=== PATIENT | male | born 1955 | race Caucasian/White ===

== ENCOUNTER 2018-01-27 10:40 | Inpatient (IN) | payer OTHER ==
[2018-01-27] MEDS ORDERED: IV FLUID CONTINUATION 600 ML IV ONE (12:40)
[2018-01-27] MEDS ORDERED: LIDOCAINE 1% INJ 10MG/ML (20 ML MDV) ONE (12:52)
[2018-01-27] MEDS ORDERED: BIVALIRUDIN BOLUS 250 MG/50 ML IV ONE (13:13)
[2018-01-27] MEDS ORDERED: BIVALIRUDIN 250 MG in SODIUM CHLORIDE 0.9% 40 ML IV ONE (13:14)
[2018-01-27] MEDS ORDERED: MIDAZOLAM 2 MG/2 ML VIAL ONE (13:18)
[2018-01-27] MEDS ORDERED: MIDAZOLAM 2 MG/2 ML VIAL IV ONE (13:22)
[2018-01-27] MEDS: NITROGLYCERIN 1000MCG/10ML SYRINGE INTRACORON ONE ×2 (13:26→13:36)
[2018-01-27] MEDS ORDERED: CLOPIDOGREL 75 MG TAB ONE (13:29)
[2018-01-27] MEDS ORDERED: CLOPIDOGREL 75 MG TAB PO ONE (13:33)
[2018-01-27] MEDS ORDERED: IOPAMIDOL-370 100ML BTL INJ ONE (13:42)
[2018-01-27] MEDS ORDERED: SODIUM CHLORIDE 0.9% 1,000 ML IV ONE (13:42)
[2018-01-27] MEDS ORDERED: ZOLPIDEM 5 MG TAB PO PRN (13:43)
[2018-01-27] MEDS ORDERED: NITROGLYCERIN SL TABS 0.4 MG TAB SUBLINGUAL PRN (13:43)
[2018-01-27] MEDS ORDERED: ATROPINE SULFATE 0.1 MG/ML 10ML SYRINGE IV PRN (13:43)
[2018-01-27] MEDS ORDERED: RX INFO: IV CONTRAST WAS GIVEN 1 EACH MISC MISCELLANE PRN (13:43)
[2018-01-27] MEDS ORDERED: MAG HYDROX/AL HYDROX/SIMETH 30 ML CUP PO PRN (13:43)
[2018-01-27] MEDS ORDERED: SODIUM CHLORIDE 0.9% 1,000 ML IV SCH (13:45)
--- NOTE | 2018-01-27 16:09 | PTCA ---
PERCUTANEOUSTRANS CORORONARY ANGIOGRAPHY DATE OF SERVICE: 01/27/2018 PERFORMING PHYSICIAN: Taiwo Huffman MD, cane splicer. PROCEDURE PERFORMED: Successful stenting of the mid RCA using a 2.75 x 15 mm Xience KAL with good angiographic results. INDICATION: This is a pleasant 62-year-old gentleman who presented to [facility] with chest discomfort and ruled in for acute non-STEMI. He underwent heart catheterization by Dr. Max Mcgee and was found to have critical disease involving the mid RCA. Because of that, PCI of the RCA was advised. APPROACH: Right common femoral artery. COMPLICATIONS: None. LEVEL OF SEDATION: Moderate with sedation length of 23 minutes. PROCEDURE DESCRIPTION: After diagnostic heart catheterization was performed by Dr. Max Mcgee and after reviewing the angiogram, we decided to proceed with intervention on the RCA. Anticoagulation was initiated using Angiomax. Subsequently I engaged the RCA using a JR4 guide. I did wire it using a Whisper wire. I did balloon angioplasty initially using a 2.0 x 12 mm balloon, and I tried to advance a 2.75 x 15 mm stent, but the stent would not make the turn from the proximal to mid RCA. At that point, I used a 2.5 mm NC balloon, and after that I was able to advance the stent to the mid RCA, where the stent was positioned under fluoroscopy guidance and deployed under 14 atmospheres for 20 seconds. The following angiogram showed good angiographic results and the procedure was completed without any complication, POST-PROCEDURE MANAGEMENT: 1. Dual anti-platelet therapy. 2. Risk factor modifications. 3. Follow up with the patient. MMODL / IJN: [id number] /
[2018-01-27] MEDS: METOPROLOL TARTRATE 25 MG TAB PO SCH (18:57)
[2018-01-27] MEDS ORDERED: ACETAMINOPHEN TAB 325 MG TAB PO PRN (19:03)
[2018-01-27] MEDS ORDERED: HYDROcodone/APAP 5-325MG 1 EACH TAB PO PRN (19:03)
[2018-01-27] MEDS ORDERED: NALOXONE 0.4 MG/ML 1 ML VIAL IV PRN (19:03)
[2018-01-27] MEDS ORDERED: ONDANSETRON 4 MG/2 ML VIAL IVP PRN (19:03)
[2018-01-27] MEDS ORDERED: ALPRAZolam 0.25 MG TAB PO PRN (19:03)
[2018-01-27] MEDS ORDERED: NICOTINE POLACRILEX 2 MG GUM BUCCAL PRN (19:09)
[2018-01-27] MEDS ORDERED: ALBUTEROL NEBULIZED 2.5 MG/3 ML INHALATION PRN (19:09)
--- NOTE | 2018-01-27 19:28 | P.HPIM ---
History of Present Illness H&P Date: 01/27/18 Chief Complaint: chest pain Patient is a 62-year-old male with a past medical history of hypertension, myocardial infarction 23 years ago, COPD, and ongoing tobacco abuse who initially presented to his primary care physician with complaints of chest pain. Having obtained an EKG and sent immediately over the hospital. He has been at [facility] since yesterday. He went for cardiac catheterization today and was found to have a lesion that needed a stent. He therefore underwent mine laborer to mine laborer transfer. Dr. Huffman deployed the stent to the RCA. He has been admitted to the selective care unit. We are asked to see him as we're covering city call. Patient seen and examined at bedside post cath. He complains of some back pain and feeling as though his leg is stiff. He states that he has been having chest pain 2 times prior to admission. The first time was rather severe and is approximately one week ago. His chest pain went into his arm and his neck. He had some tingling. Admitted had awoken him from sleep. The second time it just felt like soreness. He went to his PCPs office and had an EKG done which was abnormal and then proceeded to the hospital. He has not had any more chest pain since admission. He had initially thought this was coming from infection. he was not taking anything at home for the pain prior to admission. He denies any recent cough, cold, fever, flu. He has not had any recent changes in medication and only takes Symbicort. He does continue to smoke. Review of Systems Pertinent positives and negatives as discussed in HPI, a complete review of systems was performed and all other systems are negative. Past Medical History Additional Past Medical History / Comment(s): COPD, myocardial infarction, hypertension Past Surgical History: No Surgical Hx Reported Smoking Status: Current every day smoker Past Alcohol Use History: Occasional (Drinks 2-3 beers 2-3 times weekly) Past Drug Use History: None Reported Additional History: Lives with his , he is retired - Past Family History Father Additional Family Medical History / Comment(s): Myocardial infarction Brother(s) Family Medical History: Coronary Artery Disease (CAD) Additional Family Medical History / Comment(s): Multiple brothers with coronary artery disease, one having of an [place]. Medications and Allergies Home Medications and Allergies Comment(s): Patient states the only medication he is taking at home and Symbicort. Allergies Allergy/AdvReac Type Severity Reaction Status Date / Time No Known Allergies Allergy Verified 01/27/18 13:14 Physical Exam Osteopathic Statement: *. No significant issues noted on an osteopathic structural exam other than those noted in the History and Physical/Consult. Vitals: Vital Signs Temp Pulse Pulse Resp BP Pulse Ox 01/27/18 18:15 86 18 185/92 96 01/27/18 18:00 96 18 192/104 95 01/27/18 17:45 78 18 170/92 97 01/27/18 17:30 98.3 F 76 18 169/98 92 L 01/27/18 16:45 72 18 154/7 01/27/18 16:30 68 18 156/77 01/27/18 16:00 74 18 160/84 01/27/18 15:20 56 L 18 165/79 96 01/27/18 14:49 72 18 142/71 96 01/27/18 14:35 18 L 18 140/68 97 01/27/18 14:20 70 18 152/72 97 01/27/18 14:05 70 16 154/80 94 L Intake and Output 01/27/18 01/27/18 01/27/18 06:59 14:59 22:59 Intake Total 176.8 Output Total 500 Balance -323.2 Intake: IV 176.8 Output: Urine 500 Other: Weight 83.91 kg General: non toxic, no distress, appears at stated age, normal weight Derm: no unusual rashes/lesions no unusual ecchymoses, warm, dry Head: atraumatic, normocephalic, symmetric Eyes: EOMI, no lid lag, anicteric sclera, pupils equal round reactive to light ENT: Nose and ears atraumatic, no thrush, no pharyngeal erythema Neck: No thyromegaly, no cervical lymphadenopathy, trachea midline, supple Mouth: no lip lesion, mucus membranes moist Cardiovascular: S1S2 reg, no murmur, positive posterior tibial pulse bilateral, no edema, capillary refill less than 2 seconds Lungs: Decreased breath sounds bilateral bases, no rhonchi, no rales , no accessory muscle use Abdominal: soft, nontender to palpation, no guarding, no appreciable organomegaly, normal bowel sounds Ext: no gross muscle atrophy, muscle strength 5 out of 5 b/l upper extemities, no contractures, Neuro: CN II-XI grossly intact, light touch intact all 4 extremities, finger to nose within normal limits, Psych: Alert, oriented, appropriate affect Results Comments: Records reviewed from admission to [facility]. Today's blood work showed a sodium of 136, potassium 4.2, chloride 104, carbon dioxide 26.6, BUN 9, creatinine 0.83, glucose 98. White blood cell count 6.5, hemoglobin 14.5 , platelets 36. AST 90, ALC 113, alkaline phosphatase 62. Echo showed ejection fraction 50-55% multiple no kidney cyst in the basal and basal inferior segment. CT of the chest showed no acute pulmonary emboli Thrombosis Risk Factor Assmnt - DVT/VTE Prophylaxis DVT/VTE Prophylaxis: Pharmacologic Prophylaxis ordered Assessment and Plan Assessment: Non-ST segment elevated myocardial infarction -Status post started to RCA -Aspirin, Plavix, Lipitor, metoprolol -Cardiology recommendations HTN Urgency - give metoprolol dose now - follow BP COPD without exacerbation - resume home symbicort - prn albuterol Tobacco abause - cessation - nicotine replacement Transaminits - Undetermined cause - repeat in AM - if no improvement consider liver US At the end of our conversation it came to light that his PCP is Dr. Yao we will transfer [facility] the morning. The patient is admitted with an anticipated greater than 2 midnight stay for evaluation of NSTEMI s/p stenting. Surrogate decision-maker: CODE STATUS: DNR DVT prophylaxis: Heparin Discussed with: Patient, , nursing Anticipated discharge date: 01/[address]: home A total of 65 minutes was spent on the care of this complex patient more than 50 % of the time was spent in counseling and care coordination.
[2018-01-27] MEDS: SYMBICORT 160-4.5 MCG INHALER INHALATION SCH (20:42)
[2018-01-27] MEDS ORDERED: ATORVASTATIN 80 MG TAB PO SCH (21:00)
[2018-01-27] MEDS: HEPARIN SODIUM,PORCINE 5,000 UNIT/ML 1 ML VIAL SQ SCH (23:19)
[2018-01-28 06:34] LABS: Basophils % (A) 0 %; Eosinophils # (A) 0.1 k/uL (0-0.7); Eosinophils % (A) 2 %; HCT 43.8 % (39.0-53.0); HGB 14.9 gm/dL (13.0-17.5); Lymphocytes # (A) 1.2 k/uL (1.0-4.8); Lymphocytes % (A) 24 %; MCH 31.7 pg (25.0-35.0); MCHC 34.1 g/dL (31.0-37.0); MCV 92.9 fL (80.0-100.0); Mean Platelet Volume 6.8; Monocytes # (A) 0.7 k/uL (0-1.0); Monocytes % (A) 13 %; Neutrophils # (A) 2.8 k/uL (1.3-7.7); Neutrophils % (A) 57 %; Platelet Count 144 k/uL (150-450); RBC 4.71 m/uL (4.30-5.90); RDW 13.5 % (11.5-15.5)
[2018-01-28 07:12] LABS: Anion Gap 8 mmol/L; Blood Urea Nitrogen 9 mg/dL (9-20); Calcium 8.5 mg/dL (8.4-10.2); Carbon Dioxide 26 mmol/L (22-30); Chloride 105 mmol/L (98-107); Cholesterol 141 mg/dL (<200); Glucose 92 mg/dL (74-99); HDL Cholesterol 44 mg/dL (40-60); LDL Cholesterol,Calculated 85 mg/dL (0-99); Potassium 4.4 mmol/L (3.5-5.1); Sodium 139 mmol/L (137-145); Triglycerides 58 mg/dL (<150)
[2018-01-28] MEDS: SYMBICORT 160-4.5 MCG INHALER INHALATION SCH (07:42)
[2018-01-28] MEDS: HEPARIN SODIUM,PORCINE 5,000 UNIT/ML 1 ML VIAL SQ SCH (07:55)
[2018-01-28] MEDS: METOPROLOL TARTRATE 25 MG TAB PO SCH (07:56)
[2018-01-28 08:08] VITALS: BP 157/77; PULSE 70; RESP 16; TEMP 98.4
--- NOTE | 2018-01-28 08:54 | P.DS ---
Providers Date of admission: 01/27/18 12:52 Expected date of discharge: 01/28/18 Attending physician: Amanda Wilson Consults: 01/27/18 13:43 Consult Physician Routine Consulting Provider: [facility] Consult Reason/Comments: Post Interventional patient Do you want consulting provider notified?: Already Contacted Placement Type Exists?: Yes Hospital Course: Discharge diagnosis: NSTEMI with stent to the RCA HTN urgency COPD without exacerbation Tobacco abuse Transamimitis, improving History of present illness Patient is a 62-year-old male with a past medical history of hypertension, myocardial infarction 23 years ago, COPD, and ongoing tobacco abuse who initially presented to his primary care physician with complaints of chest pain. Having obtained an EKG and sent immediately over the hospital. He has been at [facility] since yesterday. He went for cardiac catheterization today and was found to have a lesion that needed a stent. He therefore underwent quality assurance qa lab analyst to quality assurance qa lab analyst transfer. Dr. Huffman deployed the stent to the RCA. He was admitted to the selective care unit. He tolerated the procedure well with no immediate complications. He was started on ASA, plavix, lipitor, lisinopril and metoprolol. The morning after the procedure the patinet as asking to go home. He was seen by cardiology and was cleared for discharge. He will continue on aspirin, Plavix, metoprolol, and Lipitor. He was given a prescription for 30 days and supplied with [employer] funds to cover the cost. He was told that he needs to take all of these medications on a daily basis. He was warned that should he was aspirin or Plavix he has a risk of in-stent restenosis. He was told the importance of following up with his primary care physician to have a check on his blood pressure later this week. He was also told the importance of following up due to his transaminitis. He will also follow-up Dr. Huffman in 1-2 weeks. We discussed the importance of stopping smoking and drinking. Patient improved faster than anticipated and was subsequently discharged home. Patient seen and examined at bedside. Feeling well. No chest pain, shortness breath, nausea, or vomiting. Patient insisted on being discharged. Vital signs reviewed and stable. General: non toxic, no distress, appears at stated age Derm: warm, dry Head: atraumatic, normocephalic, symmetric Eyes: EOMI, no lid lag, anicteric sclera Mouth: no lip lesion, mucus membranes moist Cardiovascular: S1S2 reg, no murmur, positive posterior tibial pulse bilateral, Lungs: CTA bilateral, no rhonchi, no rales , no accessory muscle use Abdominal: soft, nontender to palpation, no guarding, no appreciable organomegaly Ext: no gross muscle atrophy, no edema, no contractures Neuro: CN II-XI grossly intact, no focal neuro deficits Psych: Alert, oriented, anxious A total of 25 minutes of time were spent preparing this complex discharge summary . Pertinent Studies: None Procedures: 01/27- Heart cath with PCI to the RCA Patient Condition at Discharge: Stable Plan - Discharge Summary Discharge Rx Participant: No New Discharge Prescriptions: New Aspirin [Adult Low Dose Aspirin EC] 81 mg PO DAILY #30 tablet. Atorvastatin [Lipitor] 80 mg PO HS #30 tab Clopidogrel [Plavix] 75 mg PO DAILY #30 tab Metoprolol Tartrate [Lopressor] 25 mg PO BID #60 tab Discharge Medication List Aspirin [Adult Low Dose Aspirin EC] 81 mg PO DAILY #30 tablet. 01/28/18 [Rx] Atorvastatin [Lipitor] 80 mg PO HS #30 tab 01/28/18 [Rx] Clopidogrel [Plavix] 75 mg PO DAILY #30 tab 01/28/18 [Rx] Metoprolol Tartrate [Lopressor] 25 mg PO BID #60 tab 01/28/18 [Rx] Follow up Appointment(s)/Referral(s): Rene Yao MD [REFERRING] - 3 Days (call for appt) Taiwo Huffman MD [STAFF PHYSICIAN] - 1 Week (call for appt) Patient Instructions/Handouts: *Surgery [facility] - After Heart Catheterization - Insurance Actuary Instructions Activity/Diet/Wound Care/Special Instructions: heart healthy diet Activity as tolerated Stop smoking Discharge Disposition: HOME SELF-CARE
[2018-01-28] MEDS ORDERED: ASPIRIN 325 MG TAB PO SCH (09:00)
--- NOTE | 2018-01-28 09:11 | P.PN ---
Subjective Progress Note Date: 01/28/18 Principal diagnosis: Acute coronary event This is a pleasant 62-year-old gentleman with hypertension and dyslipidemia who presented to [facility] with a chest discomfort and was diagnosed with acute non-ST elevation myocardial infarction where he underwent a heart catheterization by Dr. Mcgee and I did perform an angioplasty and stenting of the RCA which was critically diseased. I'll follow-up with him today, he seems to be asymptomatic. He wants to go home. I did Dr. the patient in details about the importance of taking his dual antiplatelet therapy Objective - Vital Signs Vital signs: Vital Signs Temp 98.4 F 01/28/18 08:00 Pulse 70 01/28/18 08:00 Resp 16 01/28/18 08:00 BP 157/77 01/28/18 08:00 Pulse Ox 93 L 01/28/18 08:00 Intake & Output 01/27/18 01/28/18 01/28/18 18:59 06:59 18:59 Intake Total 176.8 1500 100 Output Total 500 700 Balance -323.2 800 100 Weight 83.91 kg 84.6 kg Intake: IV 176.8 Intake, IV Titration 1100 Amount Sodium Chloride 0.9% 1, 1100 000 ml @ 100 mls/hr IV . Q10H PAM Rx#:[id number] Oral 400 100 Output: Urine 500 700 Other: Voiding Method Urinal # Voids 1 1 - Constitutional General appearance: Present: no acute distress - Respiratory Respiratory: bilateral: CTA - Cardiovascular Rhythm: regular Heart sounds: normal: S1, S2 - Labs CBC & Chem 7: 01/28/18 06:13 01/28/18 06:13 Labs: Abnormal Lab Results - Last 24 Hours (Table) 01/28/18 Range/Units 06:13 Plt Count 144 L (150-450) k/uL Assessment and Plan Assessment: Assessment #1 acute coronary event #2 status post PCI of the RCA Plan #1 from the cardiac vascular standpoint overview, the patient can be discharged home.
[2018-01-28 10:50] VITALS: BMI 27.5
[2018-01-28] MEDS ORDERED: CLOPIDOGREL 75 MG TAB PO SCH (12:00)
== END 2018-01-28 11:19 | disposition home or self-care (01) | DRG 247 ==
LOC: UNDOADMIN 12:49 → 6PED 12:49 → 6SEL 12:52
PROVIDERS: ADMIT Hospitalist; ATTEND Hospitalist
PROC: 027034Z Dilation of Coronary Artery, One Artery with Drug-eluting Intraluminal Device, Percutaneous Approach (ICD-10-PCS; principal; 2018-01-27 12:30)
DX: I21.4 Non-ST elevation (NSTEMI) myocardial infarction (principal); I16.0 Hypertensive urgency; I25.2 Old myocardial infarction; J44.9 Chronic obstructive pulmonary disease, unspecified; R74.0 Nonspecific elevation of levels of transaminase and lactic acid dehydrogenase [LDH]; Z66 Do not resuscitate; I10 Essential (primary) hypertension; E78.5 Hyperlipidemia, unspecified; F17.210 Nicotine dependence, cigarettes, uncomplicated; Z82.49 Family history of ischemic heart disease and other diseases of the circulatory system; Z79.51 Long term (current) use of inhaled steroids; Z71.6 Tobacco abuse counseling; Z98.890 Other specified postprocedural states
CPT/HCPCS: 80048; 80061; 85025; 94760

== ENCOUNTER → 2018-05-19 | Outpatient (CLI) | payer MEDICARE, OTHER ==
[2018-05-19 12:53] LABS: HCT 47.3 % (39.0-53.0); HGB 16.3 gm/dL (13.0-17.5); MCH 32.3 pg (25.0-35.0); MCHC 34.4 g/dL (31.0-37.0); MCV 93.6 fL (80.0-100.0); Mean Platelet Volume 6.7; Platelet Count 178 k/uL (150-450); RBC 5.05 m/uL (4.30-5.90); RDW 13.4 % (11.5-15.5); WBC 8.2 k/uL (3.8-10.6)
[2018-05-19 13:17] LABS: ALT 151 U/L (21-72); AST 123 U/L (17-59); Alkaline Phosphatase 169 U/L (38-126); Anion Gap 9 mmol/L; Blood Urea Nitrogen 15 mg/dL (9-20); Calcium 9.7 mg/dL (8.4-10.2); Carbon Dioxide 30 mmol/L (22-30); Chloride 100 mmol/L (98-107); Glucose 165 mg/dL (74-99); Potassium 4.5 mmol/L (3.5-5.1); Sodium 139 mmol/L (137-145); Total Bilirubin 0.8 mg/dL (0.2-1.3); Total Protein 7.2 g/dL (6.3-8.2)
[2018-05-19 13:32] LABS: T4, Free (Free Thyroxine) 0.94 ng/dL (0.78-2.19)
== END ==
LOC: LABWHC1 11:30
PROVIDERS: ATTEND Internal Medicine Cardiovascular Disease
DX: E78.2 Mixed hyperlipidemia (principal); I25.2 Old myocardial infarction; Z95.9 Presence of cardiac and vascular implant and graft, unspecified
CPT/HCPCS: 36415; 80053; 84439; 84443; 85027

== ENCOUNTER → 2018-06-16 | Outpatient (CLI) | payer MEDICARE, OTHER ==
[2018-06-16 17:10] LABS: Anion Gap 9.4 mmol/L (4.00-12.00); Carbon Dioxide 26.6 mmol/L (21.6-31.8); Potassium 4.4 mmol/L (3.5-5.5)
== END | disposition home or self-care (01) ==
LOC: LABWHC1 09:55
PROVIDERS: ATTEND Internal Medicine Interventional Cardiology
DX: I10 Essential (primary) hypertension (principal)
CPT/HCPCS: 36415; 80051; 82565; 84520

== ENCOUNTER → 2018-12-06 | Outpatient (CLI) | payer MEDICARE, OTHER | END | disposition home or self-care (01) | LOC: LABWHC1 09:13 | PROVIDERS: ATTEND Internal Medicine Cardiovascular Disease | DX: E78.2 Mixed hyperlipidemia (principal) | CPT/HCPCS: 36415; 80061; 82550; 84450; 84460 ==

== ENCOUNTER → 2018-12-29 | Outpatient (CLI) | payer MEDICARE, OTHER ==
--- NOTE | 2018-12-29 09:18 | XR ---
EXAMINATION TYPE: XR chest 2V DATE OF EXAM: 12/29/2018 COMPARISON: Chest x-ray from 2017. HISTORY: Right-sided chest pain after fall injury. TECHNIQUE: Frontal and lateral views of the chest are obtained. FINDINGS: There is chronic parenchymal change without suspicious air space opacity, pleural effusion , or pneumothorax seen. The cardiac silhouette size remains within normal limits with atheroscleroti c change in the aortic knob. The osseous structures are intact. IMPRESSION: Chronic parenchymal changes without acute pulmonary process.
[2018-12-29 17:39] LABS: ALT 122 U/L (10-49); AST 119 U/L (14-35)
== END | disposition home or self-care (01) ==
LOC: LABWHC1 08:41
PROVIDERS: ATTEND Physician Assistant
DX: R91.8 Other nonspecific abnormal finding of lung field (principal); R07.89 Other chest pain; R74.0 Nonspecific elevation of levels of transaminase and lactic acid dehydrogenase [LDH]
CPT/HCPCS: 36415; 71046; 84450; 84460

== ENCOUNTER 2019-06-24 15:45 | Emergency (ER) | payer MEDICARE, OTHER ==
[2019-06-24 15:55] VITALS: BP 190/93; PULSE 104; RESP 18; TEMP 98.7
[2019-06-24] MEDS ORDERED: DIPH,PERTUS(ACELL)TETVAC-LF 0.5 ML VIAL IM ONE (16:18)
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
[2019-06-24] MEDS ORDERED: oxyCODONE-APAP 5-325MG 1 EACH TAB PO STA (16:36)
--- NOTE | 2019-06-24 16:38 | ED ---
Disposition Clinical Impression: Burn Disposition: HOME SELF-CARE Condition: Good Instructions (If sedation given, give patient instructions): Second Degree Burn (ED) Prescriptions: HYDROcodone/APAP 5-325MG [[place] 5-325] 1 tab PO Q6HR PRN 3 Days #12 tab PRN Reason: Severe Pain Is patient prescribed a controlled substance at d/c from ED?: Yes Referrals: Gio Saeed MD [STAFF PHYSICIAN] - 1-2 days Time of Disposition: 16:38
== END 2019-06-24 16:35 | disposition home or self-care (01) ==
LOC: EC 15:45
DX: T22.212A Burn of second degree of left forearm, initial encounter (principal); T23.272A Burn of second degree of left wrist, initial encounter; T31.0 Burns involving less than 10% of body surface; Z87.891 Personal history of nicotine dependence; Z23 Encounter for immunization; X10.2XXA Contact with fats and cooking oils, initial encounter
CPT/HCPCS: 16000; 90471; 90715; 99283

== ENCOUNTER → 2019-10-10 | Outpatient (CLI) | payer MEDICARE, OTHER | END | disposition home or self-care (01) | DX: K76.89 Other specified diseases of liver (principal) | CPT/HCPCS: 76705 ==

== ENCOUNTER 2022-01-04 14:56 | Emergency (ER) | payer OTHER ==
[2022-01-04 15:02] VITALS: BP 193/88; PULSE 84; RESP 18; TEMP 98
--- NOTE | 2022-01-04 16:42 | ED ---
General Adult HPI - General Chief complaint: Chest Pain Stated complaint: Chest Pain/Abd Pain Time Seen by Provider: 01/04/22 16:01 Source: patient Mode of arrival: ambulatory Limitations: no limitations - History of Present Illness Initial comments: Dictation was produced using [employer] dictation software. please excuse any grammatical, word or spelling errors. Chief Complaint: 66-year-old male past medical history of coronary artery disease, coronary artery stent presents emergency Department chest tightness and abdominal pain History of Present Illness: 66-year-old male. He states that his symptoms of abdominal pain began the night before [place] last year. Patient typically does not consume liquor however that night he did because of a special occasion. He had some liquor with his friend. Since then he's been having intermittent episodes of abdominal crampiness. Patient states that he was evaluated by service department manager a couple months ago where he had a lower endoscopy that showed no acute processes. Patient recently was discharged from his PCPs office due to insurance issues. Patient states that he's been having on and off abdominal cramping for the last several months. Patient has any associated fevers. Patient also has secondary complaint of chest pain. Denies that it feels like pain feels more like a discomfort. States his pressure and substernal. Nonradiating, states it is not associated diaphoresis or nausea. Patient does have history of coronary artery disease. He has had a stent plac ed. The ROS documented in this emergency department record has been reviewed and confirmed by me. Those systems with pertinent positive or negative responses have been documented in the HPI. All other systems are other negative and/or noncontributory. PHYSICAL EXAM: General Impression: Alert and oriented x3, not in acute distress HEENT: Normocephalic atraumatic, extra-ocular movements intact, pupils equal and reactive to light bilaterally, mucous membranes moist. Cardiovascular: Heart regular rate and rhythm Chest: Able to complete full sentences, no retractions, no tachypnea Abdomen: abdomen soft, non-tender, non-distended, no organomegaly Musculoskeletal: Pulses present and equal in all extremities, no peripheral edema Motor: no focal deficits noted Neurological: CN II-XII grossly intact, no focal motor or sensory deficits noted Skin: Intact with no visualized rashes Psych: Normal affect and mood ED course: 66-year-old well-appearing male presents to the emergency department for chronic abdominal pain and recent onset of chest discomfort.patient's pain is atypical. Vital signs upon arrival are within acceptable limits. Laboratory evaluation obtained. CBC, coag panel, metabolic panel is unremarkable. Liver enzymes slightly elevated. 4 panel viral PCR is negative. Chest x-ray shows no acute processes. Computed tomography scan of the abdomen and pelvis shows multiple variably enhancing liver lesion suggestive of extensive metastatic disease. Primary tumor is not identified. Follow-up is recommended. Patient observed in emergency department for approximately 4 hours and 30 minutes. Disposition options were discussed. it is recommended to the patient to be admitted to the hospital for oncology consultation and cardiac monitoring. Patient refused and preferred to be discharge to follow-up on outpatient basis. All questions answered. Patient told that he needs to follow-up with a primary care doctor and follow-up with oncology as soon as possible. Return precautions discussed. EKG interpretation: Ventricular rate 82, sinus rhythm, CT interval 155, QS 89, QTC 400. No CT prolongation, no QTC prolongation, no ST or T-wave changes noted. EKG compared to January 28 2018 showing no changes. Overall, this EKG is unremarkable - Related Data Home Medications Medication Instructions Recorded Confirmed Albuterol Sulfate [Ventolin HFA] 2 puff INHALATION RT-QID PRN 01/04/22 01/04/22 Budesonide/Formoterol Fumarate 2 puff INHALATION RT-BID 01/04/22 01/04/22 [Symbicort 160-4.5 Mcg Inhaler] Cyanocobalamin (Vitamin B-12) 1,000 mcg PO DAILY 01/04/22 01/04/22 [Vitamin B-12] Ipratropium-Albuterol Nebulize 3 ml INHALATION RT-QID 01/04/22 01/04/22 [Duoneb 0.5 mg-3 mg/3 ml Soln] Losartan Potassium 50 mg PO DAILY 01/04/22 01/04/22 carvediloL [Coreg] 6.25 mg PO BID 01/04/22 01/04/22 Previous Rx's Medication Instructions Recorded Aspirin [Adult Low Dose Aspirin EC] 81 mg PO DAILY #30 tablet. 01/28/18 Allergies Allergy/AdvReac Type Severity Reaction Status Date / Time No Known Allergies Allergy Verified 01/04/22 17:47 Review of Systems ROS Statement: Those systems with pertinent positive or pertinent negative responses have been documented in the HPI. ROS Other: All systems not noted in ROS Statement are negative. Past Medical History Past Medical History: Chest Pain / Angina, COPD, Hyperlipidemia, Hypertension, Myocardial Infarction (IA) Additional Past Medical History / Comment(s): COPD, myocardial infarction, hypertension Last Myocardial Infarction Date:: 1994 History of Any Multi-Drug Resistant Organisms: None Reported Past Surgical History: Heart Catheterization With Stent Past Anesthesia/Blood Transfusion Reactions: No Reported Reaction Past Psychological History: No Psychological Hx Reported Past Alcohol Use History: Daily Past Drug Use History: None Reported - Past Family History Father Additional Family Medical History / Comment(s): Myocardial infarction Brother(s) Family Medical History: Coronary Artery Disease (CAD) Additional Family Medical History / Comment(s): Multiple brothers with coronary artery disease, one having of an IA. General Exam Limitations: no limitations Course Vital Signs 01/04/22 14:57 Temperature 98.0 F Pulse Rate 84 Respiratory 18 Rate Blood Pressure 193/88 O2 Sat by Pulse 92 L Oximetry Medical Decision Making - Lab Data Result diagrams: 01/04/22 16:44 01/04/22 16:44 Lab Results 01/04/22 01/04/22 01/04/22 Range/Units 16:44 16:44 16:44 WBC 9.2 (3.8-10.6) k/uL RBC 5.23 (4.30-5.90) m/uL Hgb 16.1 (13.0-17.5) gm/dL Hct 50.4 (39.0-53.0) % MCV 96.3 (80.0-100.0) fL MCH 30.8 (25.0-35.0) pg MCHC 32.0 (31.0-37.0) g/dL RDW 13.2 (11.5-15.5) % Plt Count 181 (150-450) k/uL MPV 8.0 Neutrophils % 67 % Lymphocytes % 16 % Monocytes % 11 % Eosinophils % 1 % Basophils % 1 % Neutrophils # 6.1 (1.3-7.7) k/uL Lymphocytes # 1.5 (1.0-4.8) k/uL Monocytes # 1.0 (0-1.0) k/uL Eosinophils # 0.1 (0-0.7) k/uL Basophils # 0.1 (0-0.2) k/uL PT 10.8 (9.0-12.0) sec INR 1.0 (<1.2) APTT 22.1 (22.0-30.0) sec Sodium 137 (137-145) mmol/L Potassium 4.7 (3.5-5.1) mmol/L Chloride 102 (98-107) mmol/L Carbon Dioxide 26 (22-30) mmol/L Anion Gap 9 mmol/L BUN 17 (9-20) mg/dL Creatinine 0.85 (0.66-1.25) mg/dL Est GFR (CKD-EPI)AfAm >90 (>60 ml/min/1.73 sqM) Est GFR (CKD-EPI)NonAf 90 (>60 ml/min/1.73 sqM) Glucose 106 H (74-99) mg/dL Calcium 9.9 (8.4-10.2) mg/dL Magnesium 2.1 (1.6-2.3) mg/dL Total Bilirubin 0.8 (0.2-1.3) mg/dL AST 210 H (17-59) U/L ALT 138 H (4-49) U/L Alkaline Phosphatase 129 H (38-126) U/L Troponin I (0.000-0.034) ng/mL Total Protein 7.7 (6.3-8.2) g/dL Albumin 4.2 (3.5-5.0) g/dL Lipase 71 (23-300) U/L Influenza Type A (PCR) (Not Detectd) Influenza Type B (PCR) (Not Detectd) RSV (PCR) (Not Detectd) SARS-CoV-2 (PCR) (Not Detectd) 01/04/22 01/04/22 Range/Units 16:44 16:47 WBC (3.8-10.6) k/uL RBC (4.30-5.90) m/uL Hgb (13.0-17.5) gm/dL Hct (39.0-53.0) % MCV (80.0-100.0) fL MCH (25.0-35.0) pg MCHC (31.0-37.0) g/dL RDW (11.5-15.5) % Plt Count (150-450) k/uL MPV Neutrophils % % Lymphocytes % % Monocytes % % Eosinophils % % Basophils % % Neutrophils # (1.3-7.7) k/uL Lymphocytes # (1.0-4.8) k/uL Monocytes # (0-1.0) k/uL Eosinophils # (0-0.7) k/uL Basophils # (0-0.2) k/uL PT (9.0-12.0) sec INR (<1.2) APTT (22.0-30.0) sec Sodium (137-145) mmol/L Potassium (3.5-5.1) mmol/L Chloride (98-107) mmol/L Carbon Dioxide (22-30) mmol/L Anion Gap mmol/L BUN (9-20) mg/dL Creatinine (0.66-1.25) mg/dL Est GFR (CKD-EPI)AfAm (>60 ml/min/1.73 sqM) Est GFR (CKD-EPI)NonAf (>60 ml/min/1.73 sqM) Glucose (74-99) mg/dL Calcium (8.4-10.2) mg/dL Magnesium (1.6-2.3) mg/dL Total Bilirubin (0.2-1.3) mg/dL AST (17-59) U/L ALT (4-49) U/L Alkaline Phosphatase (38-126) U/L Troponin I <0.012 (0.000-0.034) ng/mL Total Protein (6.3-8.2) g/dL Albumin (3.5-5.0) g/dL Lipase (23-300) U/L Influenza Type A (PCR) Not Detected (Not Detectd) Influenza Type B (PCR) Not Detected (Not Detectd) RSV (PCR) Not Detected (Not Detectd) SARS-CoV-2 (PCR) Not Detected (Not Detectd) Disposition Clinical Impression: Liver metastasis Disposition: HOME SELF-CARE Condition: Fair Instructions (If sedation given, give patient instructions): Liver Cancer (DC) Additional Instructions: Return to the emergency department or seek immediate medical attention with any worsening chest symptoms. It is important that you follow up with oncology as soon as possible for outpatient management of abnormal CT. Your computed tomography scan is very suspicious for liver cancer Is patient prescribed a controlled substance at d/c from ED?: No Referrals: None,Stated [Primary Care Provider] - 1-2 days Santana Rowley MD [STAFF PHYSICIAN] - 1-2 days Time of Disposition: 19:38
[2022-01-04 16:59] LABS: Basophils # (A) 0.1 k/uL (0-0.2); Basophils % (A) 1 %; Eosinophils # (A) 0.1 k/uL (0-0.7); Eosinophils % (A) 1 %; HCT 50.4 % (39.0-53.0); HGB 16.1 gm/dL (13.0-17.5); Lymphocytes # (A) 1.5 k/uL (1.0-4.8); Lymphocytes % (A) 16 %; MCH 30.8 pg (25.0-35.0); MCV 96.3 fL (80.0-100.0); Monocytes % (A) 11 %; Neutrophils # (A) 6.1 k/uL (1.3-7.7); Neutrophils % (A) 67 %; Platelet Count 181 k/uL (150-450); RBC 5.23 m/uL (4.30-5.90); RDW 13.2 % (11.5-15.5); WBC 9.2 k/uL (3.8-10.6)
[2022-01-04 17:09] LABS: Partial Thromboplastin Time 22.1 sec (22.0-30.0); Prothrombin Time 10.8 sec (9.0-12.0)
--- NOTE | 2022-01-04 17:15 | XR ---
EXAMINATION TYPE: XR chest 2V DATE OF EXAM: 01/04/2022 COMPARISON: 12/26/2019 HISTORY: Chest pain TECHNIQUE: 2 view FINDINGS: Heart is normal. Lungs are clear of infiltrate. No heart failure. There are no hilar masses . Bony thorax is intact. IMPRESSION: No active cardiopulmonary disease. Normal heart. No change.
[2022-01-04 17:22] LABS: ALT 138 U/L (4-49); AST 210 U/L (17-59); African American GFR (CKD) >90 (>60 ml/min/1.73 sqM); Albumin 4.2 g/dL (3.5-5.0); Alkaline Phosphatase 129 U/L (38-126); Anion Gap 9 mmol/L; Blood Urea Nitrogen 17 mg/dL (9-20); Calcium 9.9 mg/dL (8.4-10.2); Carbon Dioxide 26 mmol/L (22-30); Chloride 102 mmol/L (98-107); Glucose 106 mg/dL (74-99); Lipase 71 U/L (23-300); Magnesium 2.1 mg/dL (1.6-2.3); Non-African American GFR(CKD) 90 (>60 ml/min/1.73 sqM); Potassium 4.7 mmol/L (3.5-5.1); Sodium 137 mmol/L (137-145); Total Bilirubin 0.8 mg/dL (0.2-1.3); Total Protein 7.7 g/dL (6.3-8.2)
--- NOTE | 2022-01-04 18:08 | CT ---
EXAMINATION TYPE: CT abdomen pelvis w con DATE OF EXAM: 01/04/2022 COMPARISON: None HISTORY: Chronic abdominal pain, no PCP, weight loss. CT DLP: 947.1 mGycm Automated exposure control for dose reduction was used. CONTRAST: Performed with IV Contrast, patient injected with 100 mL of Isovue 300. Images obtained from the diaphragm to the floor the pelvis with IV contrast. Lung bases are clear. No pleural effusion. Heart size is normal. No pericardial effusion. There is heterogeneity in the liver. There appears to be multiple enhancing foci in the liver that me asure up to 4.5 cm. The spleen is intact. The stomach is intact. There is no pancreatic mass. Gallbla dder appears normal. The bile ducts are not dilated. There is no adrenal mass. Kidneys show satisfactory contrast opacification. There is no hydronephrosi s. There is a 1.5 cm abdominal periaortic lymph node. Abdominal aorta is atheromatous. Urinary bladde r is almost empty. No free fluid in the pelvis. No pelvic mass. The appendix extends superiorly adjacent to the liver and appears normal. There is no mesenteric edema. No ascites or free air. No sign of a bowel obstruction. The lumbar vertebrae appear intact. No compression fracture. Posterior elements are intact. Facet vick nts are intact. IMPRESSION: Multiple variably enhancing liver lesions suggestive of extensive metastatic disease. Primary tumor n ot identified. Follow-up is recommended. Atherosclerotic vascular disease. Single abdominal retroperi toneal lymph node.
== END 2022-01-04 22:57 | disposition home or self-care (01) ==
LOC: EC 14:56
DX: C78.7 Secondary malignant neoplasm of liver and intrahepatic bile duct (principal); C80.1 Malignant (primary) neoplasm, unspecified; Z20.822 Contact with and (suspected) exposure to COVID-19; I10 Essential (primary) hypertension; I25.2 Old myocardial infarction; I25.10 Atherosclerotic heart disease of native coronary artery without angina pectoris; J44.9 Chronic obstructive pulmonary disease, unspecified; E78.5 Hyperlipidemia, unspecified; Z79.51 Long term (current) use of inhaled steroids; Z79.82 Long term (current) use of aspirin; Z79.899 Other long term (current) drug therapy; Z95.5 Presence of coronary angioplasty implant and graft
CPT/HCPCS: 36415; 93005; 80053; 83690; 83735; 84484; 85025; 85610; 85730; 87636; 71046; 74177; 99285; Q9967

== ENCOUNTER → 2022-01-12 | Outpatient (CLI) | payer MEDICARE ==
--- NOTE | 2022-01-12 18:05 | CT ---
EXAMINATION TYPE: CT chest w con CT DLP: 401.9 mGycm, Automated exposure control for dose reduction was used. DATE OF EXAM: 01/12/2022 5:42 PM COMPARISON: CT abdomen pelvis 01/04/2022. CLINICAL INDICATION:Male, 66 years old with history of M24.9 Joint derangement, unspecified; obs for mets. Recent metastatic ca diagnosis TECHNIQUE: Multiple axial images were obtained through the chest following the administration of 100 cc of Isovue 300. FINDINGS: LUNGS/ PLEURA: No evidence of pulmonary mass. No focal consolidation, pneumothorax or pleural effusio n. AIRWAY: Patent and unremarkable.. HEART: Size within normal limits. MEDIASTINUM: No gross evidence of adenopathy. VASCULATURE: No aortic aneurysm. No evidence for pulmonary embolus. There is atherosclerosis of the arterial vasculature. There is atherosclerosis of the coronary arteries MUSCULOSKELETAL: No acute osseous abnormalities. T12-L1 disc osteophyte complex with at least moderat e spinal canal stenosis. SOFT TISSUES/LYMPH NODES: Unremarkable. LOWER NECK: No significant findings. UPPER ABDOMEN: Multiple hyperenhancing lesions are seen throughout the liver. The liver demonstrates a nodular contour. There is diffuse low-attenuation to the liver background parenchyma. The largest i n the right hepatic lobe measuring 5.7 x 5.3 cm. Gastrohepatic ligament lymph node measuring up to 14 mm in short axis. There is recanalization of the paraumbilical vein. IMPRESSION: 1. No evidence of pulmonary embolus or pulmonary mass. 2. Hyperenhancing lesions throughout the liver similar prior. There is a nodular contour to liver sug gestive of cirrhosis. There is diffuse low-attenuation of the parenchyma of the liver suspicious for superimposed steatosis. Stable gastrohepatic of the ligament lymph node which is enlarged. 3. T12-L1 disc osteophyte complex with at least moderate spinal canal stenosis.
== END | disposition home or self-care (01) ==
LOC: RADCTMAIN 15:58
PROVIDERS: ATTEND Internal Medicine Hematology & Oncology
DX: M48.061 Spinal stenosis, lumbar region without neurogenic claudication (principal); M25.78 Osteophyte, vertebrae; R59.9 Enlarged lymph nodes, unspecified
CPT/HCPCS: 82565; 84520; 71260; 36415; Q9967

== ENCOUNTER 2022-02-16 11:24 | Day surgery (SDC) | payer MEDICARE ==
[2022-02-12 11:49] VITALS: BMI 27.2
[~2022-02-16 11:24] MED LIST: LACTATED RINGERS 1,000 ML IV SCH
[2022-02-16 12:14] VITALS: TEMP 97
[2022-02-16] MEDS ORDERED: LACTATED RINGERS 1,000 ML IV ONE (12:24)
[2022-02-16] MEDS ORDERED: PROPOFOL 10 MG/ML 20 ML VIAL IV ONE (12:44)
[2022-02-16] MEDS ORDERED: LIDOCAINE 2% INJ 20 MG/ML (2 ML VIAL) ONE (12:44)
--- NOTE | 2022-02-16 12:48 | P.GSHP ---
History of Present Illness H&P Date: 02/16/22 Chief Complaint: Epigastric pain 58-year-old male here today for EGD. Patient recently diagnosed with hepatocellular carcinoma. He has history of previous hepatitis C and cirrhosis. No rectal bleeding or melena. Some early satiety. No dysphagia. Oncology is interested in whether the patient has varices or not. Past Medical History Past Medical History: Chest Pain / Angina, COPD, Hyperlipidemia, Hypertension, Liver Disease, Myocardial Infarction (ID) Additional Past Medical History / Comment(s): "Bloating, lost 30 lbs since [place], nauseated, no appetite". Hx ID [id number], 1994 and 2017. Hx "Hepatatis C, said nothing to worry about." Last Myocardial Infarction Date:: 1994, 2017 History of Any Multi-Drug Resistant Organisms: None Reported Past Surgical History: Heart Catheterization With Stent Additional Past Surgical History / Comment(s): 1 cardiac stent. Past Anesthesia/Blood Transfusion Reactions: No Reported Reaction Date of Last Stent Placement:: 2017 Past Psychological History: No Psychological Hx Reported Smoking Status: Current every day smoker Past Alcohol Use History: Daily Additional Past Alcohol Use History / Comment(s): 3 cigarettes per day "all my life". Past Drug Use History: None Reported - Past Family History Father Family Medical History: Myocardial Infarction (ID) Additional Family Medical History / Comment(s): Myocardial infarction Brother(s) Family Medical History: Coronary Artery Disease (CAD) Additional Family Medical History / Comment(s): Multiple brothers with coronary artery disease, one having of an ID. Mother Family Medical History: Cancer Medications and Allergies Home Medications Medication Instructions Recorded Confirmed Type Albuterol Sulfate [Ventolin HFA] 2 puff INHALATION QID 01/04/22 02/16/22 History Budesonide/Formoterol Fumarate 2 puff INHALATION BID 01/04/22 02/16/22 History [Symbicort 160-4.5 Mcg Inhaler] Losartan Potassium 50 mg PO BID 01/04/22 02/16/22 History carvediloL [Coreg] 6.25 mg PO BID 01/04/22 02/16/22 History Budesonide/Glycopyr/Formoterol 2 puff INHALATION BID 02/12/22 02/16/22 History [Breztri Aerosphere Inhaler] Chlorthalidone 25 mg PO QAM 02/12/22 02/16/22 History Allergies Allergy/AdvReac Type Severity Reaction Status Date / Time No Known Allergies Allergy Verified 02/16/22 12:09 Surgical - Exam Vital Signs Temp Pulse Resp BP Pulse Ox 97.0 F L 87 15 104/63 93 L 02/16/22 12:11 02/16/22 12:11 02/16/22 12:11 02/16/22 12:11 02/16/22 12:11 Physical exam: General: Well-developed, well-nourished HEENT: Normocephalic, sclerae nonicteric Abdomen: Nontender, nondistended Extremities: No edema Neuro: Alert and oriented Assessment and Plan (1) Epigastric pain Narrative/Plan: Proceed with upper endoscopy Current Visit: Yes Status: Acute Code(s): R10.13 - EPIGASTRIC PAIN SNOMED Code(s): 78446209
--- NOTE | 2022-02-16 12:58 | P.PCN ---
Date of Procedure: 02/16/22 Procedure(s) Performed: Preoperative Dx: Epigastric pain, cirrhosis Postoperative Dx: Gastritis with erosions, distal esophagitis Procedure: EGD with Bx Anesthesia: Sedation Endoscopist: Dr. Renae Specimens: Antrum Endoscopic Procedure: The patient was on the endoscopy table in the left decubitus position. The Olympus gastroscope was inserted into the oropharynx and passed under direct visualization to the region of the third portion of the duodenum. From that point the scope was slowly withdrawn inspecting all surfaces carefully. There were no neoplastic inflammatory or polypoid lesions throughout the duodenum. The pylorus was widely patent. The stomach was carefully inspected. There was gastritis with superficial erosions. A biopsy of the antrum took place to rule out H. pylori. Retroflexion revealed a normal hiatus. The esophagus was then carefully examined. There was mild distal esophagitis present. No definite varices were noted. The patient was then taken to the recovery room in stable condition per anesthesia guidelines. Recommendations: Resume diet. Await biopsy results. Begin antiacid
[2022-02-16 13:28] VITALS: BP 123/72; PULSE 81; RESP 16
== END 2022-02-16 13:32 | disposition home or self-care (01) ==
LOC: ORWHC2ENDO 11:24
PROVIDERS: ATTEND Surgery
DX: K29.50 Unspecified chronic gastritis without bleeding (principal); K20.90 Esophagitis, unspecified without bleeding; I25.10 Atherosclerotic heart disease of native coronary artery without angina pectoris; Z95.5 Presence of coronary angioplasty implant and graft; J44.9 Chronic obstructive pulmonary disease, unspecified; I10 Essential (primary) hypertension; I25.2 Old myocardial infarction; Z79.899 Other long term (current) drug therapy; K74.60 Unspecified cirrhosis of liver; C22.0 Liver cell carcinoma; Z86.19 Personal history of other infectious and parasitic diseases; E78.5 Hyperlipidemia, unspecified; F17.210 Nicotine dependence, cigarettes, uncomplicated; Z82.49 Family history of ischemic heart disease and other diseases of the circulatory system; Z79.51 Long term (current) use of inhaled steroids
CPT/HCPCS: 88305; 43239; J2704; J2001

== ENCOUNTER 2022-05-11 23:45 | Emergency (ER) | payer MEDICARE ==
[2022-05-11 23:55] VITALS: TEMP 97.8
[2022-05-12] MEDS ORDERED: SODIUM CHLORIDE 0.9% 1,000 ML IV STA (00:21)
[2022-05-12] MEDS ORDERED: HYDROmorphone 1 MG/ML 1 ML SYRINGE IVP STA (00:25)
[2022-05-12] MEDS ORDERED: ONDANSETRON 4 MG/2 ML VIAL IVP STA (00:25)
--- NOTE | 2022-05-12 00:28 | ED ---
Abdominal Pain HPI - General Chief Complaint: Abdominal Pain Stated Complaint: Abdominal Pain Time Seen by Provider: 05/12/22 00:10 Source: patient, family, RN notes reviewed Mode of arrival: wheelchair - History of Present Illness Initial Comments: This is a pleasant 67-year-old male with a history of COPD, hypertension, hyperlipidemia, and liver cancer secondary to hepatitis C. Liver cancer is metastatic patient also has a history of 2 MIs. Patient presents stating that meghan meyer has had lower abdominal discomfort which started about 3 days ago. He states is actually intermittent, aching and sharp in nature, seems to be worse when he tries to go to sleep. She states that yesterday it went away and then came back again tonight at around 9:30. There is associated diarrhea. No evidence of hematochezia or melena. Patient is passing gas. No vomiting. No known fever. No headache, no fever or chills, no changes in vision or hearing, no sore throat or difficulty with speech, no neck pain, no chest pain or shortness of breath, no nausea or vomiting, no changes in urination or bowel movements, no numbness or tingling, no extremity pain, no skin rashes or lesions. Past medical, surgical, social, and family history reviewed. Last treatment 2-1/2 weeks ago Patient gets chemotherapy for the cancer every 3 weeks. He is due on Tuesday. Oncologist is Dr. Deisy HADLEY Complaint: abdominal pain - Related Data Home Medications Medication Instructions Recorded Confirmed Albuterol Sulfate [Ventolin HFA] 2 puff INHALATION QID 01/04/22 02/16/22 Budesonide/Formoterol Fumarate 2 puff INHALATION BID 01/04/22 02/16/22 [Symbicort 160-4.5 Mcg Inhaler] Losartan Potassium 50 mg PO BID 01/04/22 02/16/22 carvediloL [Coreg] 6.25 mg PO BID 01/04/22 02/16/22 Budesonide/Glycopyr/Formoterol 2 puff INHALATION BID 02/12/22 02/16/22 [Breztri Aerosphere Inhaler] Chlorthalidone 25 mg PO QAM 02/12/22 02/16/22 Previous Rx's Medication Instructions Recorded Omeprazole [PriLOSEC] 20 mg PO AC-BRKFST #90 cap 02/16/22 Amoxic-Pot Clav 875-125Mg 1 tab PO Q12HR 1 Days #20 tab 05/12/22 [Augmentin 875-125] HYDROcodone/APAP 5-325MG [[place] 1 tab PO Q6HR PRN 3 Days #12 tab 05/12/22 5-325] Allergies Allergy/AdvReac Type Severity Reaction Status Date / Time No Known Allergies Allergy Verified 05/11/22 23:55 Review of Systems ROS Statement: Those systems with pertinent positive or pertinent negative responses have been documented in the HPI. ROS Other: All systems not noted in ROS Statement are negative. Past Medical History Past Medical History: Chest Pain / Angina, COPD, Hyperlipidemia, Hypertension, Liver Disease, Myocardial Infarction ([place]) Additional Past Medical History / Comment(s): "Bloating, lost 30 lbs since [place], nauseated, no appetite". Hx [place] X2, 1994 and 2017. Hx "Hepatatis C,. metastatic cancer liver Last Myocardial Infarction Date:: 1994, 2017 History of Any Multi-Drug Resistant Organisms: None Reported Past Surgical History: Heart Catheterization With Stent Additional Past Surgical History / Comment(s): 1 cardiac stent. Past Anesthesia/Blood Transfusion Reactions: No Reported Reaction Date of Last Stent Placement:: 2017 Past Psychological History: No Psychological Hx Reported Smoking Status: Current every day smoker Past Alcohol Use History: Daily Past Drug Use History: None Reported - Past Family History Father Family Medical History: Myocardial Infarction ([place]) Additional Family Medical History / Comment(s): Myocardial infarction Brother(s) Family Medical History: Coronary Artery Disease (CAD) Additional Family Medical History / Comment(s): Multiple brothers with coronary artery disease, one having of an [place]. Mother Family Medical History: Cancer General Exam - General Exam Comments Initial Comments: Vital signs stable, patient afebrile. Patient does appear to be in fairly significant distress. Patient has tenderness to the lower abdomen, mostly in the suprapubic area and left lower quadrant area. General appearance: alert, in no apparent distress, in distress Head exam: Present: atraumatic, normocephalic, normal inspection Eye exam: Present: normal appearance, PERRL, EOMI. Absent: scleral icterus, conjunctival injection, periorbital swelling ENT exam: Present: normal exam, mucous membranes moist Neck exam: Present: normal inspection, full ROM. Absent: tenderness, meningismus, lymphadenopathy Respiratory exam: Present: normal lung sounds bilaterally. Absent: respiratory distress, wheezes, rales, rhonchi, stridor Cardiovascular Exam: Present: regular rate, normal rhythm, normal heart sounds. Absent: systolic murmur, diastolic murmur, rubs, gallop, clicks GI/Abdominal exam: Present: soft, tenderness (Patient has tenderness in suprapub ic area and left lower quadrant.), guarding, normal bowel sounds. Absent: distended, rebound, rigid Extremities exam: Present: normal inspection, full ROM, normal capillary refill. Absent: tenderness, pedal edema, joint swelling, calf tenderness Back exam: Present: normal inspection Neurological exam: Present: alert, oriented X3, CN II-XII intact Psychiatric exam: Present: normal affect, normal mood Skin exam: Present: warm, dry, intact, normal color. Absent: rash Course Vital Signs 05/11/22 23:47 Temperature 97.8 F Pulse Rate 86 Respiratory 18 Rate Blood Pressure 127/74 O2 Sat by Pulse 95 Oximetry - Reevaluation(s) Reevaluation #1: 05/12/22 01:24 Medical record is reviewed Symptoms are improved here in the emergency department after pain medications Patient in no distress Reevaluation #2: 05/12/22 02:35 Medical record is reviewed Symptoms are improved here in the emergency department Patient is informed of results and questions answered Patient in no distress Patient computed tomography scan shows evidence of nonspecific stranding in the left lower quadrant, left paracolic gutter area. We'll treat the patient for suspected diverticulitis. Zosyn ordered. Patient much better. He went after stable. We'll plan for discharge. Medical Decision Making - Medical Decision Making Patient presents with left lower quadrant and suprapubic pain, consistent with possible intra-abdominal infectious process. Stranding noted in the left paracolic gutter area. We'll treat for suspected diverticulitis. The patient's white blood cell count was normal. Vital signs stable, patient afebrile. Patient able to hold down fluids, not vomiting. Lactic acid was normal. Note that the patient's liver transaminases were higher than previously. We'll have the patient follow-up with his oncologist. Patient due for his chemotherapeutic intervention on Tuesday. All findings discussed with the patient. Treatment plan discussed. Going to have the patient follow up with his primary care physician within the next 48 hours for recheck. Patient should also notify his oncologist, Dr. Olivas. The case was discussed in detail with ED attending physician. Presentation, findings, treatment plan discussed in detail. Supervising physician Dr. Fields - Lab Data Result diagrams: 05/12/22 00:23 05/12/22 00:23 Lab Results 05/12/22 05/12/22 05/12/22 Range/Units 00:23 00:23 00:23 WBC 7.5 (3.8-10.6) k/uL RBC 5.15 (4.30-5.90) m/uL Hgb 16.6 (13.0-17.5) gm/dL Hct 47.3 (39.0-53.0) % MCV 91.9 (80.0-100.0) fL MCH 32.2 (25.0-35.0) pg MCHC 35.0 (31.0-37.0) g/dL RDW 13.5 (11.5-15.5) % Plt Count 186 (150-450) k/uL MPV 9.4 PT 11.0 (9.0-12.0) sec INR 1.0 (<1.2) APTT 22.3 (22.0-30.0) sec Sodium 137 (137-145) mmol/L Potassium 4.6 (3.5-5.1) mmol/L Chloride 98 (98-107) mmol/L Carbon Dioxide 27 (22-30) mmol/L Anion Gap 12 mmol/L BUN 15 (9-20) mg/dL Creatinine 0.87 (0.66-1.25) mg/dL Est GFR (CKD-EPI)AfAm >90 (>60 ml/min/1.73 sqM) Est GFR (CKD-EPI)NonAf 88 (>60 ml/min/1.73 sqM) Glucose 117 H (74-99) mg/dL Plasma Lactic Acid Pako (0.7-2.0) mmol/L Calcium 10.3 H (8.4-10.2) mg/dL Total Bilirubin 0.8 (0.2-1.3) mg/dL AST 513 H (17-59) U/L ALT 219 H (4-49) U/L Alkaline Phosphatase 156 H (38-126) U/L Troponin I (0.000-0.034) ng/mL Total Protein 7.4 (6.3-8.2) g/dL Albumin 4.1 (3.5-5.0) g/dL Lipase 65 (23-300) U/L 05/12/22 05/12/22 Range/Units 00:23 00:23 WBC (3.8-10.6) k/uL RBC (4.30-5.90) m/uL Hgb (13.0-17.5) gm/dL Hct (39.0-53.0) % MCV (80.0-100.0) fL MCH (25.0-35.0) pg MCHC (31.0-37.0) g/dL RDW (11.5-15.5) % Plt Count (150-450) k/uL MPV PT (9.0-12.0) sec INR (<1.2) APTT (22.0-30.0) sec Sodium (137-145) mmol/L Potassium (3.5-5.1) mmol/L Chloride (98-107) mmol/L Carbon Dioxide (22-30) mmol/L Anion Gap mmol/L BUN (9-20) mg/dL Creatinine (0.66-1.25) mg/dL Est GFR (CKD-EPI)AfAm (>60 ml/min/1.73 sqM) Est GFR (CKD-EPI)NonAf (>60 ml/min/1.73 sqM) Glucose (74-99) mg/dL Plasma Lactic Acid Pako 1.2 (0.7-2.0) mmol/L Calcium (8.4-10.2) mg/dL Total Bilirubin (0.2-1.3) mg/dL AST (17-59) U/L ALT (4-49) U/L Alkaline Phosphatase (38-126) U/L Troponin I <0.012 (0.000-0.034) ng/mL Total Protein (6.3-8.2) g/dL Albumin (3.5-5.0) g/dL Lipase (23-300) U/L - EKG Data EKG Comments: EKG done at 12:32 AM and read by the ED attending physician reveals sinus tachycardia with a rate of 113. Normal axis. Possible right atrial enlargement. No acute ST or T-wave changes. Normal intervals. No evidence of significant ST elevation or depression. No icterus morphology otherwise. When compared to the previous study from December 2021 there is no significant change - Radiology Data Radiology results: report reviewed, image reviewed Disposition Clinical Impression: Lower abdominal pain, Colitis Narrative: Abdominal pain, lower, colitis with suspected mild diverticulitis according to clinical findings Disposition: HOME SELF-CARE Condition: Good Instructions (If sedation given, give patient instructions): Abdominal Pain (ED), Diverticulitis (ED) Additional Instructions: Call your oncologist in the morning to notify him that you're on antibiotics. Call your regular physician in the morning as well to schedule an appointment to be seen on or Tuesday. Take the antibiotics as directed. Drink plenty of fluids. Adhere to mostly clear liquid diet for the next 12 hours. Advance as tolerated thereafter. Follow-up with your regular physician as directed. Return to the ER immediately if any symptoms worsen, new symptoms arise, or any other problems develop. Is patient prescribed a controlled substance at d/c from ED?: No Referrals: Yordy Lynn MD [Primary Care Provider] - 1-2 days Petra Olivas MD [STAFF PHYSICIAN] - 1-2 days Time of Disposition: 03:03
[2022-05-12 00:47] LABS: ALT 219 U/L (4-49); AST 513 U/L (17-59); African American GFR (CKD) >90 (>60 ml/min/1.73 sqM); Albumin 4.1 g/dL (3.5-5.0); Alkaline Phosphatase 156 U/L (38-126); Anion Gap 12 mmol/L; Blood Urea Nitrogen 15 mg/dL (9-20); Calcium 10.3 mg/dL (8.4-10.2); Carbon Dioxide 27 mmol/L (22-30); Chloride 98 mmol/L (98-107); Glucose 117 mg/dL (74-99); Lipase 65 U/L (23-300); Non-African American GFR(CKD) 88 (>60 ml/min/1.73 sqM); Potassium 4.6 mmol/L (3.5-5.1); Sodium 137 mmol/L (137-145); Total Bilirubin 0.8 mg/dL (0.2-1.3); Total Protein 7.4 g/dL (6.3-8.2)
[2022-05-12 00:54] LABS: Partial Thromboplastin Time 22.3 sec (22.0-30.0)
--- NOTE | 2022-05-12 01:16 | CT ---
EXAMINATION TYPE: CT abdomen pelvis wo con DATE OF EXAM: 05/12/2022 COMPARISON: 01/04/2022 HISTORY: ABD PAIN CT DLP: 494.7 mGycm Automated exposure control for dose reduction was used. Images obtained from the diaphragm to the floor the pelvis with no contrast. The lung bases are clear of infiltrate. There is pulmonary hyperinflation. Heart size is normal. No p ericardial effusion. No pleural effusion. Liver spleen and stomach pancreas and gallbladder appear intact. The bile ducts are not dilated. There is no adrenal mass. Kidneys show normal size and contour. No hydronephrosis. No retroperitoneal adenopathy. Abdominal aorta is atheromatous. Appendix is lateral and appears edilberto l. Bladder distends smoothly. No inguinal hernia. No free fluid in the pelvis. No pelvic mass. Abdominal aorta is atheromatous. The lumbar spine is intact. No compression fracture. Bony pelvis is intact. T he hip joints are intact. There is no ascites or free air. No mesenteric edema. No sign of a bowel obstruction. There is some m inimal fat stranding in the left paracolic gutter. IMPRESSION: There is minimal fat stranding left paracolic gutter of uncertain significance. This appears new comp ared to old exam. Minimal colitis is possible. COPD. There are multiple liver lesions on the previous CT scan that are not evident on this noncontra st exam.
[2022-05-12 01:44] LABS: HCT 47.3 % (39.0-53.0); HGB 16.6 gm/dL (13.0-17.5); MCH 32.2 pg (25.0-35.0); MCV 91.9 fL (80.0-100.0); Mean Platelet Volume 9.4; Platelet Count 186 k/uL (150-450); RBC 5.15 m/uL (4.30-5.90); RDW 13.5 % (11.5-15.5); WBC 7.5 k/uL (3.8-10.6)
--- NOTE | 2022-05-12 02:02 | XR ---
EXAMINATION TYPE: XR chest 1V portable DATE OF EXAM: 05/12/2022 COMPARISON: 03/25/2022 HISTORY: Pain TECHNIQUE: Single view FINDINGS: There is no heart failure nor confluent pneumonic infiltrate. Costophrenic angles are clear . There are no hilar masses. There is flattening of the diaphragm. Bony thorax is intact IMPRESSION: COPD. No active cardiopulmonary disease. No change.
[2022-05-12] MEDS ORDERED: PIPERACILLIN-TAZOBACTAM 3.375 GM in SODIUM CHLORIDE 0.9% 100 ML IVPB STA (02:20)
[2022-05-12 03:17] VITALS: BP 155/77; PULSE 107; RESP 16
[2022-05-12 03:20] LABS: Band Neutrophils % 8 %; Eosinophils # (M) 0.45 k/uL (0-0.7); Lymphocytes # (M) 1.95 k/uL (1.0-4.8); Neutrophils % (M) 48 %; Nucleated Red Blood Cells 0 /100 WBC (0-0); Total Cells Counted 100
[2022-05-12 03:21] LABS: Large Platelets Present
== END 2022-05-12 03:33 | disposition home or self-care (01) ==
LOC: EC 23:45
DX: K52.9 Noninfective gastroenteritis and colitis, unspecified (principal); E11.9 Type 2 diabetes mellitus without complications; E78.5 Hyperlipidemia, unspecified; I10 Essential (primary) hypertension; I25.2 Old myocardial infarction; F17.200 Nicotine dependence, unspecified, uncomplicated
CPT/HCPCS: 36415; 93005; 80053; 83605; 83690; 84484; 85025; 85610; 85730; 71045; 74176; 99284; 96375; 96365; 96361; J2543; J2405; J1170

== ENCOUNTER 2022-05-12 18:00 | Inpatient (IN) | payer MEDICARE ==
[2022-05-12] MEDS ORDERED: SODIUM CHLORIDE 0.9% 1,000 ML IV STA (22:39)
[2022-05-12] MEDS ORDERED: HYDROmorphone 1 MG/ML 1 ML SYRINGE IVP STA (22:39)
[2022-05-12] MEDS ORDERED: ONDANSETRON 4 MG/2 ML VIAL IVP STA (22:39)
[2022-05-12] MEDS ORDERED: DOCUSATE 100 MG CAP PO STA (22:39)
--- NOTE | 2022-05-12 23:04 | ED ---
General Adult HPI - General Chief complaint: Abdominal Pain Stated complaint: Abd pain Time Seen by Provider: 05/12/22 21:59 Source: patient, RN notes reviewed Mode of arrival: ambulatory Limitations: no limitations - History of Present Illness Initial comments: 67-year-old male presents to the emergency Department with complaints of left lower quadrant and suprapubic abdominal pain. Patient states this pain began 4 days ago that was initially attributed to food intolerance. States the pain progressively worsened so he sought treatment and was diagnosed with diverticulitis. Was started on [place] and Augmentin. Patient states he took a [place] at noon and then again at 5:00 today with no improvement. Pain continued to worsen throughout the evening. Reports small bowel movement yesterday and none today. He is concerned about constipation as well. Has Stage 4 Liver cancer with metastases. Currently undergoing chemotherapy; next scheduled for Tuesday. Denies fever, chills, headache, chest pain, shortness of breath, vomiting, diarrhea, hematochezia, melena, dysuria, or hematuria. - Related Data Home Medications Medication Instructions Recorded Confirmed Albuterol Sulfate [Ventolin HFA] 2 puff INHALATION RT-QID PRN 01/04/22 05/12/22 Budesonide/Formoterol Fumarate 2 puff INHALATION RT-BID 01/04/22 05/12/22 [Symbicort 160-4.5 Mcg Inhaler] Losartan Potassium 50 mg PO DAILY 01/04/22 05/12/22 Chlorthalidone 25 mg PO HS 02/12/22 05/12/22 Dicyclomine [Bentyl] 10 mg PO TID PRN 05/12/22 05/12/22 Ipratropium-Albuterol Nebulize 3 ml INHALATION RT-QID PRN 05/12/22 05/12/22 [Duoneb 0.5 mg-3 mg/3 ml Soln] Previous Rx's Medication Instructions Recorded Amoxic-Pot Clav 875-125Mg 1 tab PO Q12HR 1 Days #20 tab 05/12/22 [Augmentin 875-125] HYDROcodone/APAP 5-325MG [[place] 1 tab PO Q6HR PRN 3 Days #12 tab 05/12/22 5-325] Allergies Allergy/AdvReac Type Severity Reaction Status Date / Time No Known Allergies Allergy Verified 05/11/22 23:55 Review of Systems ROS Statement: Those systems with pertinent positive or pertinent negative responses have been documented in the HPI. ROS Other: All systems not noted in ROS Statement are negative. Past Medical History Past Medical History: Chest Pain / Angina, COPD, Hyperlipidemia, Hypertension, Liver Disease, Myocardial Infarction ([place]) Additional Past Medical History / Comment(s): "Bloating, lost 30 lbs since [place], nauseated, no appetite". Hx [place] X2, 1994 and 2017. Hx "Hepatatis C,. metastatic cancer liver Last Myocardial Infarction Date:: 1994, 2017 History of Any Multi-Drug Resistant Organisms: None Reported Past Surgical History: Heart Catheterization With Stent Additional Past Surgical History / Comment(s): 1 cardiac stent. Past Anesthesia/Blood Transfusion Reactions: No Reported Reaction Date of Last Stent Placement:: 2017 Past Psychological History: No Psychological Hx Reported Smoking Status: Current every day smoker Past Alcohol Use History: Daily Past Drug Use History: None Reported - Past Family History Father Family Medical History: Myocardial Infarction ([place]) Additional Family Medical History / Comment(s): Myocardial infarction Brother(s) Family Medical History: Coronary Artery Disease (CAD) Additional Family Medical History / Comment(s): Multiple brothers with coronary artery disease, one having of an [place]. Mother Family Medical History: Cancer General Exam Limitations: no limitations General appearance: alert, other (Well-developed, well-nourished male in moderate distress due to pain. Initial temperature 98.1, pulse 107, respirations 20, blood pressure 161/88, pulse ox 92% on room air.) Respiratory exam: Present: normal lung sounds bilaterally. Absent: respiratory distress, wheezes, rales, rhonchi, stridor Cardiovascular Exam: Present: regular rate, normal rhythm, normal heart sounds. Absent: systolic murmur, diastolic murmur, rubs, gallop, clicks GI/Abdominal exam: Present: soft, tenderness (LLQ and suprapubic tenderness upon palpation), guarding, normal bowel sounds, other (position of comfort leaning forward) Back exam: Absent: CVA tenderness (R), CVA tenderness (L) Neurological exam: Present: alert, oriented X3, CN II-XII intact Psychiatric exam: Present: anxious Skin exam: Present: warm, dry, intact Course Vital Signs 05/12/22 05/13/22 18:19 01:23 Temperature 98.1 F Pulse Rate 107 H 105 H Respiratory 20 16 Rate Blood Pressure 161/88 189/104 O2 Sat by Pulse 92 L 92 L Oximetry - Reevaluation(s) Reevaluation #1: 05/13/22 01:00 Upon reevaluation, patient reports pain is slightly improved, but persists. Patient appears uncomfortable. Again discussed hospital admission for failed outpatient treatment and intractable abdominal pain. Patient is more agreeable with this plan of care at this time. 05/13/22 02:[address] Ramirez who agrees to accept this admission. Medical Decision Making - Medical Decision Making This is a pleasant 67-year-old male with a current diagnosis of stage IV liver cancer presents to the emergency department for intractable left lower quadrant abdominal pain. Patient was diagnosed with colitis/diverticulitis yesterday and started on oral antibiotic and pain medication. His pain is not well-controlled. Upon exam, patient appears significantly uncomfortable, but in no acute distress. His abdomen is soft with localized tenderness on the left lower quadrant. Patient was given IV fluids, Zofran, and Dilaudid for pain. Laboratory studies were obtained showing elevated liver enzymes which is consistent with previous findings. We discussed hospital admission for intractable pain versus discharge home, however given the repeat dose of pain medication and persistent nature of his discomfort, patient elects to stay in the hospital. I did speak with Dr. Ramirez who agrees to accept this admission. Attending: Donnie. - Lab Data Result diagrams: 05/12/22 22:39 05/13/22 00:15 Lab Results 05/12/22 05/13/22 05/13/22 Range/Units 22:39 00:15 00:15 WBC 8.0 (3.8-10.6) k/uL RBC 4.99 (4.30-5.90) m/uL Hgb 16.3 (13.0-17.5) gm/dL Hct 46.4 (39.0-53.0) % MCV 93.0 (80.0-100.0) fL MCH 32.7 (25.0-35.0) pg MCHC 35.2 (31.0-37.0) g/dL RDW 13.4 (11.5-15.5) % Plt Count 216 (150-450) k/uL MPV 7.8 Neutrophils % 63 % Lymphocytes % 18 % Monocytes % 14 % Eosinophils % 2 % Basophils % 1 % Neutrophils # 5.0 (1.3-7.7) k/uL Lymphocytes # 1.5 (1.0-4.8) k/uL Monocytes # 1.1 H (0-1.0) k/uL Eosinophils # 0.2 (0-0.7) k/uL Basophils # 0.0 (0-0.2) k/uL Sodium 136 L (137-145) mmol/L Potassium 4.5 (3.5-5.1) mmol/L Chloride 104 (98-107) mmol/L Carbon Dioxide 20 L (22-30) mmol/L Anion Gap 12 mmol/L BUN 15 (9-20) mg/dL Creatinine 0.85 (0.66-1.25) mg/dL Est GFR (CKD-EPI)AfAm >90 (>60 ml/min/1.73 sqM) Est GFR (CKD-EPI)NonAf 89 (>60 ml/min/1.73 sqM) Glucose 105 H (74-99) mg/dL Plasma Lactic Acid Pako 1.0 (0.7-2.0) mmol/L Calcium 9.2 (8.4-10.2) mg/dL Total Bilirubin 1.1 (0.2-1.3) mg/dL AST 460 H (17-59) U/L ALT 202 H (4-49) U/L Alkaline Phosphatase 132 H (38-126) U/L Total Protein 7.2 (6.3-8.2) g/dL Albumin 4.0 (3.5-5.0) g/dL Lipase 51 (23-300) U/L - Radiology Data Radiology results: report reviewed, image reviewed KUB x-ray was obtained. Report was reviewed in its entirety. Impression per Dr. Pereyra is nonacute abdomen. Disposition Clinical Impression: Intractable abdominal pain, Failure of outpatient treatment Disposition: ADMITTED IP TO THIS [facility] Condition: Serious Decision Date: 05/13/22 Decision Time: 02:06
[2022-05-12 23:43] LABS: Basophils % (A) 1 %; Eosinophils # (A) 0.2 k/uL (0-0.7); Eosinophils % (A) 2 %; HCT 46.4 % (39.0-53.0); HGB 16.3 gm/dL (13.0-17.5); Lymphocytes # (A) 1.5 k/uL (1.0-4.8); Lymphocytes % (A) 18 %; MCH 32.7 pg (25.0-35.0); MCHC 35.2 g/dL (31.0-37.0); Mean Platelet Volume 7.8; Monocytes # (A) 1.1 k/uL (0-1.0); Monocytes % (A) 14 %; Neutrophils % (A) 63 %; Platelet Count 216 k/uL (150-450); RBC 4.99 m/uL (4.30-5.90); RDW 13.4 % (11.5-15.5)
[2022-05-13 00:38] LABS: ALT 202 U/L (4-49); AST 460 U/L (17-59); African American GFR (CKD) >90 (>60 ml/min/1.73 sqM); Alkaline Phosphatase 132 U/L (38-126); Anion Gap 12 mmol/L; Blood Urea Nitrogen 15 mg/dL (9-20); Calcium 9.2 mg/dL (8.4-10.2); Carbon Dioxide 20 mmol/L (22-30); Chloride 104 mmol/L (98-107); Glucose 105 mg/dL (74-99); Lipase 51 U/L (23-300); Non-African American GFR(CKD) 89 (>60 ml/min/1.73 sqM); Potassium 4.5 mmol/L (3.5-5.1); Sodium 136 mmol/L (137-145); Total Bilirubin 1.1 mg/dL (0.2-1.3); Total Protein 7.2 g/dL (6.3-8.2)
[2022-05-13] MEDS ORDERED: HYDROmorphone 1 MG/ML 1 ML SYRINGE IVP STA (01:18)
[2022-05-13] MEDS ORDERED: SODIUM CHLORIDE 0.9% 1,000 ML IV STA (01:18)
--- NOTE | 2022-05-13 01:37 | XR ---
EXAMINATION TYPE: XR KUB DATE OF EXAM: 05/13/2022 COMPARISON: NONE HISTORY: Abdominal pain TECHNIQUE: 2 views were obtained upright FINDINGS: There is no sign of intestinal obstruction or pneumoperitoneum. Fecal pattern is normal. Th ere is vascular calcification. No calcification seen definitely over the kidneys. No sign of a mass. Lung bases are clear of consolidation. IMPRESSION: Nonacute abdomen.
[2022-05-13] MEDS ORDERED: NALOXONE 0.4 MG/ML 1 ML VIAL IV PRN (02:28)
[2022-05-13] MEDS ORDERED: ONDANSETRON 4 MG/2 ML VIAL IVP PRN (02:28)
[2022-05-13] MEDS ORDERED: HYDROcodone/APAP 5-325MG 1 EACH TAB PO PRN (02:31)
--- NOTE | 2022-05-13 04:08 | P.HPIM ---
History of Present Illness H&P Date: 05/13/22 The patient is a 67-year-old male with a PMH of stage IV cancer (? Primary liver versus metastatic to liver) undergoing chemotherapy with Dr. Olivas, hypertension, COPD who presents to the emergency room with complaints of abdominal pain. The patient reports that his symptoms started roughly a week ago and gradually worsened. He reports 10 out of 10 constant left lower quadrant abdominal discomfort for which she was seen in the emergency room yesterday. The patient was given a prescription of Augmentin and was discharged home. He reports however that his pain worsened this morning and he decided to return to the emergency room. At time of interview, he reports his pain had improved to a 3 out of 10. He reports that he has been having occasional blood- tinged mucousy bowel movements with some blood upon wiping. He denies pain with defecation. Also reports that he has only been having one to 2 bowel movements a day. Denied nausea or vomiting. Denied fever or chills. CT abdomen and pelvis from the prior to presentation revealed minimal fat stranding of the left paracolic gutter with minimal colitis as well as multiple liver lesions from prior CT that were no longer visible. KUB x-ray from this presentation was unremarkable. Laboratory evaluation was remarkable for lactic acid of 1.0, AST 460, ALT 202, and alk phos 132. Review of systems: Pertinent positives and negatives as discussed in HPI, a complete review of systems was performed and all other systems are negative. Physical examination: General: non toxic, no distress, appears at stated age, normal weight Derm: no unusual rashes/lesions, warm Head: atraumatic, normocephalic, symmetric Eyes: EOMI, no lid lag, anicteric sclera, pupils equal round reactive to light ENT: Nose and ears atraumatic Neck: No cervical lymphadenopathy, trachea midline, supple Mouth: no lip lesion, mucus membranes moist Cardiovascular: S1S2 reg, no murmur, positive dorsalis pedis pulse bilateral, no edema Lungs: CTA bilateral, no rhonchi, no rales, no accessory muscle use Abdominal: soft, minimal left lower quadrant tenderness, no guarding Ext: muscle strength 5 out of 5 in all 4 extremities grossly, no gross muscle atrophy, no contractures, Neuro: CN II-XI grossly intact, no gross focal neuro deficits Psych: Alert, oriented, appropriate affect Assessment/plan Intractable abdominal pain with mucousy bloody stools, possibly proctitis vs colitis -Empiric treatment with Flagyl -IVFs -Clear liquid diet -Follow up stool culture, lactoferrin -Pain control Stage 4 unknown malignancy -Oncology consult as patient currently following with Dr Walker -Proctitis may be a side-effect of the patient's chemotherapy regimen (patient isn't aware of the name) DVT prophylaxis -Heparin subq The patient is admitted with an anticipated greater than 2 midnight stay for evaluation of abdominal pain CODE STATUS: Full Code Discussed with: Patient Anticipated discharge date: in am Anticipated discharge place: Home Past Medical History Past Medical History: Chest Pain / Angina, COPD, Hyperlipidemia, Hypertension, Liver Disease, Myocardial Infarction (MA) Additional Past Medical History / Comment(s): "Bloating, lost 30 lbs since Gabriel, nauseated, no appetite". Hx MA X2, 1994 and 2017. Hx "Hepatatis C,. metastatic cancer liver Last Myocardial Infarction Date:: 1994, 2017 History of Any Multi-Drug Resistant Organisms: None Reported Past Surgical History: Heart Catheterization With Stent Additional Past Surgical History / Comment(s): 1 cardiac stent. Past Anesthesia/Blood Transfusion Reactions: No Reported Reaction Date of Last Stent Placement:: 2017 Past Psychological History: No Psychological Hx Reported Smoking Status: Current every day smoker Past Alcohol Use History: Daily Past Drug Use History: None Reported - Past Family History Father Family Medical History: Myocardial Infarction (MA) Additional Family Medical History / Comment(s): Myocardial infarction Brother(s) Family Medical History: Coronary Artery Disease (CAD) Additional Family Medical History / Comment(s): Multiple brothers with coronary artery disease, one having of an MA. Mother Family Medical History: Cancer Medications and Allergies Home Medications Medication Instructions Recorded Confirmed Type Albuterol Sulfate [Ventolin HFA] 2 puff INHALATION RT-QID PRN 01/04/22 05/12/22 History Budesonide/Formoterol Fumarate 2 puff INHALATION RT-BID 01/04/22 05/12/22 History [Symbicort 160-4.5 Mcg Inhaler] Losartan Potassium 50 mg PO DAILY 01/04/22 05/12/22 History Chlorthalidone 25 mg PO HS 02/12/22 05/12/22 History Amoxic-Pot Clav 875-125Mg 1 tab PO Q12HR 1 Days #20 tab 10/12/22 10/12/22 Rx [Augmentin 225-125] Dicyclomine [Bentyl] 10 mg PO TID PRN 05/12/22 05/12/22 History HYDROcodone/APAP 5-325MG [[place] 1 tab PO Q6HR PRN 3 Days #12 tab 05/12/22 05/12/22 Rx 5-325] Ipratropium-Albuterol Nebulize 3 ml INHALATION RT-QID PRN 05/12/22 05/12/22 History [Duoneb 0.5 mg-3 mg/3 ml Soln] Allergies Allergy/AdvReac Type Severity Reaction Status Date / Time No Known Allergies Allergy Verified 05/11/22 23:55 Physical Exam Vitals: Vital Signs Temp Pulse Resp BP Pulse Ox 05/13/22 01:23 105 H 16 189/104 92 L 05/12/22 18:19 98.1 F 107 H 20 161/88 92 L Intake and Output 05/12/22 05/12/22 05/13/22 14:59 22:59 06:59 Other: Weight 71.214 kg Results CBC & Chem 7: 05/12/22 22:39 05/13/22 00:15 Labs: Abnormal Lab Results - Last 24 Hours (Table) 05/12/22 05/13/22 Range/Units 22:39 00:15 Monocytes # 1.1 H (0-1.0) k/uL Sodium 136 L (137-145) mmol/L Carbon Dioxide 20 L (22-30) mmol/L Glucose 105 H (74-99) mg/dL AST 460 H (17-59) U/L ALT 202 H (4-49) U/L Alkaline Phosphatase 132 H (38-126) U/L
[2022-05-13] MEDS: SODIUM CHLORIDE 0.9% 1,000 ML IV SCH ×3 (04:35→21:08)
[2022-05-13] MEDS: metroNIDAZOLE 250 MG TABLET PO SCH ×3 (04:46→22:31)
[2022-05-13 06:11] LABS: ALT 173 U/L (4-49); AST 373 U/L (17-59); African American GFR (CKD) >90 (>60 ml/min/1.73 sqM); Albumin 3.2 g/dL (3.5-5.0); Albumin/Globulin Ratio 1.1; Alkaline Phosphatase 110 U/L (38-126); Anion Gap 8 mmol/L; Blood Urea Nitrogen 12 mg/dL (9-20); Calcium 8.3 mg/dL (8.4-10.2); Carbon Dioxide 24 mmol/L (22-30); Chloride 105 mmol/L (98-107); Globulin 2.9 g/dL; Glucose 84 mg/dL (74-99); Non-African American GFR(CKD) >90 (>60 ml/min/1.73 sqM); Sodium 137 mmol/L (137-145); Total Bilirubin 0.9 mg/dL (0.2-1.3); Total Protein 6.1 g/dL (6.3-8.2)
[2022-05-13] MEDS: SYMBICORT 160-4.5 MCG INHALER INHALATION SCH ×2 (07:14→20:40)
[2022-05-13] MEDS: LOSARTAN 50 MG TAB PO SCH (09:39)
[2022-05-13] MEDS: FAMOTIDINE 20 MG TAB PO SCH ×2 (09:57→21:07)
[2022-05-13] MEDS: HEPARIN SODIUM,PORCINE/PF 5,000 UNIT/0.5 ML SYRINGE SQ SCH ×3 (09:57→22:31)
[2022-05-13] MEDS: LEVOFLOXACIN 500MG-D5W PMX 500 MG in DEXTROSE/WATER 1 100ML.BAG IVPB SCH (09:59)
[2022-05-13] MEDS: HYDROmorphone 1 MG/ML 1 ML SYRINGE IVP PRN (17:40)
[2022-05-13] MEDS: oxyCODONE-APAP 10-325MG 1 EACH TAB PO PRN (21:07)
[2022-05-13] MEDS: CHLORTHALIDONE 25 MG TAB PO SCH (22:31)
[2022-05-14 05:18] LABS: Basophils % (A) 0 %; Eosinophils # (A) 0.1 k/uL (0-0.7); Eosinophils % (A) 2 %; HCT 41.5 % (39.0-53.0); HGB 14.4 gm/dL (13.0-17.5); Lymphocytes # (A) 0.9 k/uL (1.0-4.8); Lymphocytes % (A) 16 %; MCH 32.6 pg (25.0-35.0); MCHC 34.8 g/dL (31.0-37.0); MCV 93.7 fL (80.0-100.0); Mean Platelet Volume 7.7; Monocytes # (A) 0.7 k/uL (0-1.0); Monocytes % (A) 14 %; Neutrophils # (A) 3.4 k/uL (1.3-7.7); Neutrophils % (A) 65 %; Platelet Count 186 k/uL (150-450); RBC 4.43 m/uL (4.30-5.90); RDW 13.1 % (11.5-15.5); WBC 5.3 k/uL (3.8-10.6)
[2022-05-14] MEDS: oxyCODONE-APAP 10-325MG 1 EACH TAB PO PRN ×2 (05:33→16:10)
[2022-05-14] MEDS: SODIUM CHLORIDE 0.9% 1,000 ML IV SCH (05:35)
[2022-05-14] MEDS: metroNIDAZOLE 250 MG TABLET PO SCH ×3 (05:39→20:18)
[2022-05-14] MEDS: SYMBICORT 160-4.5 MCG INHALER INHALATION SCH ×2 (07:24→19:09)
[2022-05-14] MEDS: FAMOTIDINE 20 MG TAB PO SCH ×2 (08:14→20:18)
[2022-05-14] MEDS: HEPARIN SODIUM,PORCINE/PF 5,000 UNIT/0.5 ML SYRINGE SQ SCH ×2 (08:14→16:07)
[2022-05-14] MEDS: LEVOFLOXACIN 500MG-D5W PMX 500 MG in DEXTROSE/WATER 1 100ML.BAG IVPB SCH (08:15)
[2022-05-14] MEDS: LOSARTAN 50 MG TAB PO SCH (08:15)
[2022-05-14 09:22] LABS: African American GFR (CKD) 105.6 (60.0-200.0); Anion Gap 7.3 mmol/L (10.00-18.00); BUN/Creat Ratio 10.88 Ratio (12.00-20.00); Blood Urea Nitrogen 8.7 mg/dL (9.0-27.0); Calcium 8.1 mg/dL (8.7-10.3); Carbon Dioxide 25.7 mmol/L (20.0-27.5); Non-African American GFR(CKD) 91.1 (60.0-200.0); Potassium 4.2 mmol/L (3.5-5.5)
--- NOTE | 2022-05-14 09:41 | P.PN ---
Subjective Progress Note Date: 05/14/22 Patient was seen and examined. No acute events overnight. Patient reported one episode of NBNB vomiting. He reports abdominal distention. Patient reports passing gas today. No bowel movement today. Abdominal pain rated 3/10 in severity. General: non toxic, no distress, appears at stated age, normal weight Derm: no unusual rashes/lesions, warm Head: atraumatic, normocephalic, symmetric Eyes: EOMI, no lid lag, anicteric sclera ENT: Nose and ears atraumatic Neck: No cervical lymphadenopathy, trachea midline, supple Mouth: no lip lesion, mucus membranes moist Cardiovascular: S1S2 reg, no murmur, no edema Lungs: CTA bilateral, no rhonchi, no rales, no accessory muscle use Abdominal: soft, minimal left lower quadrant tenderness, no guarding, sluggish bowel sounds Ext: muscle strength 5 out of 5 in all 4 extremities grossly, no gross muscle atrophy, no contractures, Neuro: no gross focal neuro deficits Psych: Alert, oriented, appropriate affect Assessment/plan #Intractable abdominal pain with mucousy bloody stools, possibly proctitis vs colitis #Ileus -Empiric treatment with Flagyl and Levaquin -Zofran PRN for nausea and vomiting -IVFs -Clear liquid diet -Follow up stool culture, lactoferrin -Pain control #Transaminitis -Likely related to underlying malignancy #Stage 4 unknown malignancy -Oncology consult as patient currently following with Dr Walker -Proctitis may be a side-effect of the patient's chemotherapy regimen (patient isn't aware of the name) DVT prophylaxis -Heparin subq The patient is admitted with an anticipated greater than 2 midnight stay for evaluation of abdominal pain CODE STATUS: Full Code Discussed with: Patient Objective - Vital Signs Vital signs: Vital Signs Temp 98.4 F 05/14/22 04:24 Pulse 90 05/14/22 04:24 Resp 15 05/14/22 04:24 BP 149/81 05/14/22 04:24 Pulse Ox 92 L 05/14/22 04:24 FiO2 Intake & Output 05/13/22 05/14/22 05/14/22 18:59 06:59 18:59 Weight 74 kg Other: Voiding Method Toilet # Voids 2 - Labs CBC & Chem 7: 05/14/22 04:31 05/14/22 04:31 Labs: Abnormal Lab Results - Last 24 Hours (Table) 05/14/22 05/14/22 Range/Units 04:31 04:31 Lymphocytes # 0.9 L (1.0-4.8) k/uL Anion Gap 7.30 L (10.00-18.00) mmol/L BUN 8.7 L (9.0-27.0) mg/dL BUN/Creatinine Ratio 10.88 L (12.00-20.00) Ratio Calcium 8.1 L (8.7-10.3) mg/dL
[2022-05-14 12:46] VITALS: BMI 24.0
--- NOTE | 2022-05-14 16:50 | P.CONS ---
History of Present Illness - Reason for Consult Consult date: 05/13/22 HCC Requesting physician: Josie Ramirez - Chief Complaint abd pain - History of Present Illness Mr. Carranza is a pleasant male pt of Dr. Olivas who presented with abd bloating a nd pain with associated early satiety that began around 07/2021. CT AP 01/04/22 revealed multiple enhancing liver lesions, largest rt hepatic lobe 5.7x5.3cm, a 14mm gastrophrenic node, no evidence of cirrhosis, portal hypertension or varices. CT chest 01/12/22 no evidence of disease. 02/01/22 liver biopsy was positive for HCC, + Hep C. AFP 431, coags were WNL, Hep C quant [id number]. EGD, no varices. Colonoscopy 04/22, 3 benign polyps. 03/15/2022 he started tecentriq/avastin. He has had 3 or 4 cycles, due for next cycle next week. He presented to the ED c/o lower abd/suprapubic pain x 5-6 days, persisted and progressed, associated with small amounts of "slimy" stool, light in color, mucus in the stool. Denies fever, N,V, chest pain, SOB, dysuria, hematochezia, melena, bleeding. The bloating is very uncomfortable. He is ambulating in the room. Review of Systems 10 point review of systems is negative except as stated in HPI Past Medical History Past Medical History: Chest Pain / Angina, COPD, Hyperlipidemia, Hypertension, Liver Disease, Myocardial Infarction (MD) Additional Past Medical History / Comment(s): "Bloating, lost 30 lbs since , nauseated, no appetite". Hx MD X2, 1994 and 2017. Hx "Hepatatis C,. metastatic cancer liver Last Myocardial Infarction Date:: 2017 History of Any Multi-Drug Resistant Organisms: None Reported Past Surgical History: Heart Catheterization With Stent Additional Past Surgical History / Comment(s): 1 cardiac stent. Past Anesthesia/Blood Transfusion Reactions: No Reported Reaction Date of Last Stent Placement:: 2017 Past Psychological History: No Psychological Hx Reported Smoking Status: Current every day smoker Past Alcohol Use History: Daily Past Drug Use History: None Reported - Past Family History Father Family Medical History: Myocardial Infarction (MD) Additional Family Medical History / Comment(s): Myocardial infarction Brother(s) Family Medical History: Coronary Artery Disease (CAD) Additional Family Medical History / Comment(s): Multiple brothers with coronary artery disease, one having of an MD. Mother Family Medical History: Cancer Medications and Allergies Home Medications Medication Instructions Recorded Confirmed Type Albuterol Sulfate [Ventolin HFA] 2 puff INHALATION RT-QID PRN 01/04/22 05/12/22 History Budesonide/Formoterol Fumarate 2 puff INHALATION RT-BID 01/04/22 05/12/22 History [Symbicort 160-4.5 Mcg Inhaler] Losartan Potassium 50 mg PO DAILY 01/04/22 05/12/22 History Chlorthalidone 25 mg PO HS 02/12/22 05/12/22 History Amoxic-Pot Clav 875-125Mg 1 tab PO Q12HR 1 Days #20 tab 05/12/22 05/12/22 Rx [Augmentin 875-125] Dicyclomine [Bentyl] 10 mg PO TID PRN 05/12/22 05/12/22 History HYDROcodone/APAP 5-325MG [[place] 1 tab PO Q6HR PRN 3 Days #12 tab 05/12/22 05/12/22 Rx 5-325] Ipratropium-Albuterol Nebulize 3 ml INHALATION RT-QID PRN 05/12/22 05/12/22 History [Duoneb 0.5 mg-3 mg/3 ml Soln] Allergies Allergy/AdvReac Type Severity Reaction Status Date / Time No Known Allergies Allergy Verified 05/11/22 23:55 Physical Exam Vitals: Vital Signs Temp Pulse Resp BP BP Pulse Ox 05/13/22 14:00 98.9 F 17 156/101 95 05/13/22 08:00 17 05/13/22 01:23 105 H 16 189/104 92 L 05/12/22 18:19 98.1 F 107 H 20 161/88 92 L - Constitutional General appearance: average body habitus, cooperative, no acute distress - EENT Eyes: anicteric sclerae, EOMI ENT: hearing grossly normal, normal oropharynx - Neck Neck: no lymphadenopathy - Respiratory Respiratory: bilateral: CTA - Cardiovascular Rhythm: regular Heart sounds: normal: S1, S2 Abnormal Heart Sounds: systolic murmur leg Peripheral Edema: bilateral: None - Gastrointestinal General gastrointestinal: no absent bowel sounds, no decreased bowel sounds, distended, no hepatomegaly, no hyperactive bowel sounds, normal bowel sounds, no organomegaly, no rigid, no scaphoid, soft, no splenomegaly, tenderness (no rebound, rigidity), no umbilical hernia, no ventral hernia - Integumentary Integumentary: normal - Neurologic Neurologic: CNII-XII intact - Musculoskeletal Musculoskeletal: strength equal bilaterally - Psychiatric Psychiatric: A&O x's 3, appropriate affect, intact judgment & insight Results CBC & Chem 7: 05/14/22 04:31 05/14/22 04:31 Labs: Abnormal Lab Results - Last 24 Hours (Table) 05/12/22 05/13/22 05/13/22 Range/Units 22:39 00:15 05:09 Monocytes # 1.1 H (0-1.0) k/uL Sodium 136 L (137-145) mmol/L Carbon Dioxide 20 L (22-30) mmol/L Glucose 105 H (74-99) mg/dL Calcium 8.3 L (8.4-10.2) mg/dL AST 460 H 373 H (17-59) U/L ALT 202 H 173 H (4-49) U/L Alkaline Phosphatase 132 H (38-126) U/L Total Protein 6.1 L (6.3-8.2) g/dL Albumin 3.2 L (3.5-5.0) g/dL Abdominal x-ray: report reviewed Assessment and Plan (1) Intractable abdominal pain Current Visit: Yes Status: Acute Priority: High Code(s): R10.9 - UNSPECIFIED ABDOMINAL PAIN SNOMED Code(s): 24067935 (2) HCC (hepatocellular carcinoma) Current Visit: Yes Status: Acute Priority: High Code(s): C22.0 - LIVER CELL CARCINOMA SNOMED Code(s): 454983257 Plan: Pt was on abx and pain meds for suspected diverticulitis on admit. He is now on flagyl. Abx Xray no acute abd, some vascular calcification. Not suspecting current presentation r/t treatment. His LFTs are worse then when in office 04/27 but, will monitor for now. Agree with treatment of suspected diverticulitis. Stool cultures pending CBC is WNL
--- NOTE | 2022-05-14 16:59 | P.PN ---
Subjective Progress Note Date: 05/14/22 Principal diagnosis: HCC, on treatment In f/u today pt is reporting decreased abd bloating, pain, he had a light colored stool this AM, no reported mucus, he vomited a small amount today but he is relating that to a particular Popsicle. He reports tolerating everything else. He would to try more food. No fevers. Objective - Vital Signs Vital signs: Vital Signs Temp 97.7 F 05/14/22 11:44 Pulse 81 05/14/22 11:44 Resp 20 05/14/22 11:44 BP 127/73 05/14/22 11:44 Pulse Ox 94 L 05/14/22 11:44 FiO2 Intake & Output 05/13/22 05/14/22 05/14/22 18:59 06:59 18:59 Weight 74 kg 74 kg Other: Voiding Method Toilet # Voids 2 - Constitutional General appearance: Present: average body habitus, cooperative, no acute distress - EENT Eyes: Present: anicteric sclerae, EOMI ENT: Present: hearing grossly normal - Respiratory Details: resp even and unlabored - Cardiovascular Details: radial pulse 2+ - Gastrointestinal Gastrointestinal Comment(s): less distended, BS+, mild tenderness on deep palpation, no rebound or rigidity - Integumentary Integumentary: Present: normal - Neurologic Neurologic: Present: CNII-XII intact - Musculoskeletal Musculoskeletal: Present: strength equal bilaterally - Psychiatric Psychiatric: Present: A&O x's 3, appropriate affect, intact judgment & insight - Labs CBC & Chem 7: 05/14/22 04:31 05/14/22 04:31 Labs: Abnormal Lab Results - Last 24 Hours (Table) 05/13/22 05/14/22 05/14/22 Range/Units 22:30 04:31 04:31 Lymphocytes # 0.9 L (1.0-4.8) k/uL Anion Gap 7.30 L (10.00-18.00) mmol/L BUN 8.7 L (9.0-27.0) mg/dL BUN/Creatinine Ratio 10.88 L (12.00-20.00) Ratio Calcium 8.1 L (8.7-10.3) mg/dL Magnesium (1.5-2.4) mg/dL Stool Lactoferrin POSITIVE A (NEGATIVE) 05/14/22 Range/Units 04:31 Lymphocytes # (1.0-4.8) k/uL Anion Gap (10.00-18.00) mmol/L BUN (9.0-27.0) mg/dL BUN/Creatinine Ratio (12.00-20.00) Ratio Calcium (8.7-10.3) mg/dL Magnesium 1.4 L (1.5-2.4) mg/dL Stool Lactoferrin (NEGATIVE) Microbiology - Last 24 Hours (Table) 05/13/22 22:30 Stool Culture - Preliminary Stool Assessment and Plan (1) Intractable abdominal pain Current Visit: Yes Status: Acute Priority: High Code(s): R10.9 - UNSPECIFIED ABDOMINAL PAIN SNOMED Code(s): 73871448 (2) HCC (hepatocellular carcinoma) Current Visit: Yes Status: Acute Priority: High Code(s): C22.0 - LIVER CELL CARCINOMA SNOMED Code(s): 041339514 Plan: Abd symptoms improved today. Cont treatments per IM. Pain mgmt is adequate per pt. His diet was advanced. LFTs improved today, almost at baseline from when in office 04/27. Cont to monitor for now. Stool cultures pending CBC is WNL again today Attests: I have seen and examined pt, performed H&P, developed impression and plan of care. Discussed with dictator. Agree with dictation, documented as a scribe.
[2022-05-14] MEDS: HYDROmorphone 1 MG/ML 1 ML SYRINGE IVP PRN ×2 (17:41→20:35)
[2022-05-14] MEDS: CHLORTHALIDONE 25 MG TAB PO SCH (20:18)
[2022-05-15] MEDS: HEPARIN SODIUM,PORCINE/PF 5,000 UNIT/0.5 ML SYRINGE SQ SCH ×2 (00:31→08:47)
[2022-05-15 05:01] VITALS: BP 154/77; PULSE 90; RESP 18; TEMP 98.4
[2022-05-15] MEDS: metroNIDAZOLE 250 MG TABLET PO SCH ×2 (05:02→12:28)
[2022-05-15] MEDS: oxyCODONE-APAP 10-325MG 1 EACH TAB PO PRN (05:06)
[2022-05-15] MEDS: SYMBICORT 160-4.5 MCG INHALER INHALATION SCH (07:25)
[2022-05-15] MEDS: LEVOFLOXACIN 500MG-D5W PMX 500 MG in DEXTROSE/WATER 1 100ML.BAG IVPB SCH (08:47)
[2022-05-15] MEDS: LOSARTAN 50 MG TAB PO SCH (08:47)
[2022-05-15] MEDS: FAMOTIDINE 20 MG TAB PO SCH (08:47)
[2022-05-15] MEDS: MAGNESIUM SULFATE-D5W PMX 1 GM in DEXTROSE/WATER 1 100ML.BAG IVPB SCH ×3 (09:56→11:16)
--- NOTE | 2022-05-15 13:09 | P.DS ---
Providers Date of admission: 05/13/22 02:48 Expected date of discharge: 05/15/22 Attending physician: Josie Ramirez MD Consults: 05/13/22 04:05 Consult Physician Urgent Consulting Provider: Petra Olivas Consult Reason/Comments: Stage 4 malignancy Do you want consulting provider notified?: Yes Primary care physician: [facility] Course: The patient is a 67-year-old male with a PMH of stage IV cancer (? Primary liver versus metastatic to liver) undergoing chemotherapy with Dr. Olivas, hypertension, COPD who presents to the emergency room with complaints of abdominal pain. The patient reports that his symptoms started roughly a week ago and gradually worsened. He reports 10 out of 10 constant left lower quadrant abdominal discomfort for which she was seen in the emergency room yesterday. The patient was given a prescription of Augmentin and was discharged home. He reports however that his pain worsened this morning and he decided to return to the emergency room. At time of interview, he reports his pain had improved to a 3 out of 10. He reports that he has been having occasional blood- tinged mucousy bowel movements with some blood upon wiping. He denies pain with defecation. Also reports that he has only been having one to 2 bowel movements a day. Denied nausea or vomiting. Denied fever or chills. CT abdomen and pelvis from the prior to presentation revealed minimal fat stranding of the left paracolic gutter with minimal colitis as well as multiple liver lesions from prior CT that were no longer visible. KUB x-ray from this presentation was unremarkable. Laboratory evaluation was remarkable for lactic acid of 1.0, AST 460, ALT 202, and alk phos 132. Patient was started on Levaquin and Flagyl IV. His diet was advanced. Patient was seen and examined. No acute events overnight. One episode of emesis today. Patient states that he would like to go home. He will be discharged on 4 more days of antibiotics. Prescribed Zofran and Percocet PRN as well. Advised to follow-up with PCP within 1-2 days of discharge. Advised follow-up with GI and oncology within 1 week of discharge. Patient verbalized understanding of the plan. at bedside. Physical examination: General: non toxic, no distress, appears at stated age, normal weight Derm: no unusual rashes/lesions, warm Head: atraumatic, normocephalic, symmetric Eyes: EOMI, no lid lag, anicteric sclera ENT: Nose and ears atraumatic Neck: No cervical lymphadenopathy, trachea midline, supple Mouth: no lip lesion, mucus membranes moist Cardiovascular: S1S2 reg, no murmur no edema Lungs: CTA bilateral, no rhonchi, no rales, no accessory muscle use Abdominal: soft, minimal left lower quadrant tenderness, no guarding Ext: muscle strength 5 out of 5 in all 4 extremities grossly, no gross muscle atrophy, no contractures, Neuro: no gross focal neuro deficits Psych: Alert, oriented, appropriate affect Discharge diagnosis: #Intractable abdominal pain with mucousy bloody stools, possibly proctitis vs colitis #Ileus #Transaminitis #Hypomagnesemia #Stage 4 unknown malignancy This complex discharge took about 35 minutes to complete. Patient Condition at Discharge: Stable Plan - Discharge Summary Discharge Rx Participant: No New Discharge Prescriptions: New Levofloxacin [Levaquin] 750 mg PO DAILY 4 Days #4 tab oxyCODONE-APAP 10-325MG [Percocet 10-325 mg] 1 each PO Q6HR PRN #12 tab PRN Reason: Moderate Pain Ondansetron Odt [Zofran Odt] 4 mg PO Q8HR PRN #20 tab PRN Reason: Nausea metroNIDAZOLE [Flagyl] 750 mg PO Q8H #12 tab Continue Chlorthalidone 25 mg PO HS Albuterol Sulfate [Ventolin HFA] 2 puff INHALATION RT-QID PRN PRN Reason: Shortness Of Breath Losartan Potassium 50 mg PO DAILY Budesonide/Formoterol Fumarate [Symbicort 160-4.5 Mcg Inhaler] 2 puff INHALATION RT-BID Dicyclomine [Bentyl] 10 mg PO TID PRN PRN Reason: CRAMPS Ipratropium-Albuterol Nebulize [Duoneb 0.5 mg-3 mg/3 ml Soln] 3 ml INHALATION RT-QID PRN PRN Reason: Shortness Of Breath Discontinued Amoxic-Pot Clav 875-125Mg [Augmentin 875-125] 1 tab PO Q12HR 1 Days #20 tab HYDROcodone/APAP 5-325MG [[place] 5-325] 1 tab PO Q6HR PRN 3 Days #12 tab PRN Reason: Pain Discharge Medication List Albuterol Sulfate [Ventolin HFA] 2 puff INHALATION RT-QID PRN 01/04/22 [History] Budesonide/Formoterol Fumarate [Symbicort 160-4.5 Mcg Inhaler] 2 puff INHALATION RT-BID 01/04/22 [History] Losartan Potassium 50 mg PO DAILY 01/04/22 [History] Chlorthalidone 25 mg PO HS 02/12/22 [History] Dicyclomine [Bentyl] 10 mg PO TID PRN 05/12/22 [History] Ipratropium-Albuterol Nebulize [Duoneb 0.5 mg-3 mg/3 ml Soln] 3 ml INHALATION RT-QID PRN 05/12/22 [History] Levofloxacin [Levaquin] 750 mg PO DAILY 4 Days #4 tab 05/15/22 [Rx] Ondansetron Odt [Zofran Odt] 4 mg PO Q8HR PRN #20 tab 05/15/22 [Rx] metroNIDAZOLE [Flagyl] 750 mg PO Q8H #12 tab 05/15/22 [Rx] oxyCODONE-APAP 10-325MG [Percocet 10-325 mg] 1 each PO Q6HR PRN #12 tab 05/15/22 [Rx] Follow up Appointment(s)/Referral(s): Yordy Lynn MD [Primary Care Provider] - 1-2 days Debbie Ruth MD [STAFF PHYSICIAN] - 1 Week Petra Olivas MD [STAFF PHYSICIAN] - 1 Week Activity/Diet/Wound Care/Special Instructions: Diet: BRAT diet and advance as tolerated. Take all medications as advised. FU PCP 1-2 days of DC. FU GI within 1 week of DC. FU Oncology 1 week of DC. Discharge Disposition: HOME SELF-CARE
== END 2022-05-15 12:31 | disposition home or self-care (01) | DRG 394 ==
LOC: EC 18:00 → 5NMEDONC 05-13 02:48
PROVIDERS: ADMIT Internal Medicine; ATTEND Internal Medicine
DX: K62.89 Other specified diseases of anus and rectum (principal); C22.0 Liver cell carcinoma; C79.9 Secondary malignant neoplasm of unspecified site; K56.7 Ileus, unspecified; K57.92 Diverticulitis of intestine, part unspecified, without perforation or abscess without bleeding; K52.9 Noninfective gastroenteritis and colitis, unspecified; E78.5 Hyperlipidemia, unspecified; J44.9 Chronic obstructive pulmonary disease, unspecified; T45.1X5A Adverse effect of antineoplastic and immunosuppressive drugs, initial encounter; R74.01 Elevation of levels of liver transaminase levels; E83.42 Hypomagnesemia; I10 Essential (primary) hypertension; I25.2 Old myocardial infarction; F17.200 Nicotine dependence, unspecified, uncomplicated; Z71.6 Tobacco abuse counseling; Z79.51 Long term (current) use of inhaled steroids; Z79.899 Other long term (current) drug therapy; Z86.19 Personal history of other infectious and parasitic diseases; Z95.5 Presence of coronary angioplasty implant and graft
CPT/HCPCS: 36415; 71045; 74018; 74176; 80048; 80053; 83605; 83630; 83690; 83735; 84484; 85025; 85610; 85730; 87045; 87046; 93005; 96361; 96365; 96366; 96372; 96375; 96376; 99284; 99285

== ENCOUNTER → 2022-05-24 | Outpatient (CLI) | payer MEDICARE ==
--- NOTE | 2022-05-24 17:33 | CT ---
EXAMINATION TYPE: CT abdomen pelvis w con DATE OF EXAM: 05/24/2022 COMPARISON: 05/12/2022 HISTORY: obs for mets. hx of liver ca CT DLP: 679.70 mGycm Automated exposure control for dose reduction was used. CONTRAST: Performed with IV Contrast, patient injected with 80 mL of Isovue 300. Images obtained from the diaphragm to the floor the pelvis with oral and IV contrast. There are some emphysematous changes in the lower lung y[place]. Heart size is normal. No pericardial e ffusion. There is heterogeneity in the liver. There is irregular 5 cm area of increased density in the central right lobe of the liver. There is a 3 cm area of increased density superior lateral right lobe of th e liver. There is 2.5 cm area of increased density inferior right lobe of the liver. These multiple l iver lesions show enhancement and are consistent with tumor. There are other smaller foci of enhancem ent in the liver measuring up to 1.5 cm. Spleen is intact. No evidence of pancreatic mass. Stomach is intact. There is no adrenal mass. Kidneys show satisfactory contrast opacification. No hydronephrosis. Ureter s are not dilated. No retroperitoneal adenopathy. There is irregular increased density in the posteri or urinary bladder in the midline and towards the left side. This measures up to 1 cm in thickness. N o inguinal hernia. No free fluid in the pelvis. No pelvic mass. There is no mesenteric edema. No ascites or free air. No bowel obstruction. Appendix appears normal. The lumbar vertebrae are in normal alignment. There is vacuum disc at L5-S1. No compression fracture. The bony pelvis is intact. Hip joints are intact. Abdominal aorta is atheromatous. There is moderate atherosclerotic vascular calcification. IMPRESSION: Multiple variable sized areas of pathologic enhancement in the liver consistent with multifocal tumor . Lesions in the liver appear not significantly changed in size compared to the contrast CT scan of . No definite increasing liver lesion.
== END | disposition home or self-care (01) ==
LOC: RADCTMAIN 14:59
PROVIDERS: ATTEND Internal Medicine Hematology & Oncology
DX: C22.0 Liver cell carcinoma (principal)
CPT/HCPCS: 82565; 84520; 74177; 36415; Q9967

== ENCOUNTER → 2022-08-18 | Outpatient (CLI) | payer MEDICARE ==
--- NOTE | 2022-08-18 14:24 | CT ---
EXAMINATION TYPE: CT ChestAbdPelvis w con DATE OF EXAM: 08/18/2022 COMPARISON: 05/24/2022, 01/04/2022, CT chest 01/12/2022 HISTORY: 67-year-old male C22.0 Liver Cell Carcinoma TECHNIQUE: Contiguous axial scanning of the chest, abdomen, and pelvis performed with IV Contrast, pa tient injected with 70 ml mL of Isovue 300. Delayed images through the kidneys were obtained. Coronal /sagittal reconstructions performed. CT DLP: 1368 mGycm Automated exposure control for dose reduction was used. FINDINGS: CHEST: Normal size without pericardial effusion. Extensive three-vessel coronary artery calcifications are p resent. Borderline ectasia ascending aorta 3.5 cm. Small splenic artery calcifications. Moderate atherosclero tic narrowing at the origin of the left common carotid artery and mild at the origin of the brachioce phalic artery. Additional [id number] atelectatic calcifications throughout the remainder of the descending thoracic aorta. Mild bilateral gynecomastia. No thoracic lymphadenopathy by CT size criteria. Underlying at least moderate emphysematous change in the lungs. No consolidation or pleural effusion. ABDOMEN: Redemonstrated is cirrhotic appearance to the liver Multiple hypervascular hepatic masses are demonstrated and have corresponding accelerated washout. Dominant hypervascular lesion hepatic dome measuring up to 5.6 cm versus 5.1 cm, previously. Anterior midliver lesion estimated at 5.5 cm versus 4.9 cm, previously. A number of other lesions are either stable or similarly minimally larger. Round 2.4 cm hypervascular lesion inferior right liver lobe persists on delayed kidney scan compatibl e with flash filling hemangioma Borderline distended gallbladder. Portal venous system is patent. No biliary ductal dilatation. Adrenal glands, kidneys, spleen, and pancreas within normal limits. Multiple borderline and enlarged gastric hepatic lymph nodes measuring up to 1.8 cm are largely uncha nged. No dilated small bowel, free fluid, or free air. No retroperitoneal lymphadenopathy seen. Normal appendix. Moderate stool in the right side of the colon. Redundant sigmoid colon. No pericolic inflammatory change. PELVIS: BLADDER urine distended. Prostate gland is enlarged at 4.8 cm wide. There is 1.1 cm mural based nodul arity posterior inferior left bladder wall. No abnormal fluid collection in the pelvis or pelvic lymp hadenopathy. Some severe segmental stenoses throughout the external iliac arteries. BONES: Moderate degenerative disc disease L5-S1. Disc osteophyte complex at T11-T12. Disc osteophyte complex here intravenously focal moderate spinal canal stenosis. No osseous destructive process. IMPRESSION: 1. CIRRHOSIS AND MULTIPLE HYPERVASCULAR LIVER MASSES REDEMONSTRATED COMPATIBLE WITH UNDERLYING NEOPLA SM. THESE MASSES MEASURE UP TO 5.6 CM AND ARE EITHER STABLE TO MINIMALLY LARGER (FOR EXAMPLE, 5.6 CM NOW VERSUS 5.1 CM, PREVIOUSLY). 2. INCIDENTAL 2.4 CM FLASH FILLING HEMANGIOMA INFERIOR RIGHT LIVER LOBE. 3. BORDERLINE AND ENLARGED GASTROHEPATIC LIGAMENT LYMPH NODES IN THE UPPER ABDOMEN MEASURING UP TO 1. 8 CM ARE UNCHANGED. NO NEW METASTATIC DISEASE IDENTIFIED. 4. HOWEVER, THERE IS A 1.1 CM MURAL BASED SOFT TISSUE NODULE ALONG THE POSTERIOR INFERIOR LEFT BLADDE R WALL. UROTHELIAL NEOPLASM SHOULD BE EXCLUDED. CORRELATE WITH URINALYSIS AND URINE CYTOLOGY. 5. COPD. CAD WITH EXTENSIVE THREE-VESSEL CORONARY ARTERY CALCIFICATIONS.
== END | disposition home or self-care (01) ==
LOC: RADCTMAIN 09:37
PROVIDERS: ATTEND Internal Medicine Hematology & Oncology
DX: C22.0 Liver cell carcinoma (principal); Z03.89 Encounter for observation for other suspected diseases and conditions ruled out; D18.03 Hemangioma of intra-abdominal structures; J44.9 Chronic obstructive pulmonary disease, unspecified; I25.10 Atherosclerotic heart disease of native coronary artery without angina pectoris; N32.89 Other specified disorders of bladder; K74.60 Unspecified cirrhosis of liver; R59.0 Localized enlarged lymph nodes
CPT/HCPCS: 82565; 84520; 71260; 74177; 36415; Q9967 ×2

== ENCOUNTER → 2022-12-08 | Outpatient (CLI) | payer MEDICARE ==
--- NOTE | 2022-12-09 09:15 | CT ---
EXAMINATION TYPE: CT ChestAbdPelvis w con DATE OF EXAM: 12/08/2022 COMPARISON: 08/18/2022, 05/24/2022 HISTORY: 67-year-old male C22.0, obs for mets TECHNIQUE: Contiguous axial scanning of the chest, abdomen, and pelvis performed with IV Contrast, pa tient injected with 100ml mL of Isovue 300. Delayed images through the kidneys were obtained. Coronal /sagittal reconstructions performed. CT DLP: 845.6 mGycm Automated exposure control for dose reduction was used. FINDINGS: Chest: Heart normal size without pericardial effusion. Extensive three-vessel coronary artery calcifications are present and are unremarkable for coronary artery disease. Moderate atherosclerotic arch calcifications with conventional arch vessel branching anatomy. Unchanged borderline size right hilar lymph node at 1.0 cm. Unchanged pericardiac node measuring 8 mm. Otherwise, normal thoracic lymphadenopathy by CT size criteria. Underlying emphysematous change without consolidation or pleural effusion. ABDOMEN: Numerous hypervascular masses are redemonstrated throughout the liver cirrhotic liver. Largest mass is anterior mid liver estimated at 6.9 cm versus 7.1 cm, previously. Mid hepatic dome measuring 5.8 cm versus 6.2 cm, previously. Overall disease is similar. Similar hypervascular, persistently enhancing lesion inferior right liver lobe measuring 2.3 cm sugge sting a hemangioma. Portal venous system is patent. No biliary ductal dilatation. Gallbladder, adrenal glands, kidneys, spleen, pancreas within normal limits. Moderate atherosclerotic calcifications throughout the abdominal aorta and iliac arteries. Similar rolando hepatis/peripancreatic lymphadenopathy measuring up to 1.6 cm. Gastrohepatic adenopathy measuring up to 1.1 cm. No dilated small bowel, free fluid, free air. Normal appendix. Mild/moderate stool burden. No pericolonic inflammatory change. PELVIS: Apparent 1.6 cm mural based nodule left posterior bladder base versus 1.1 cm, previously. Prostatomeg kain 5.2 cm wide. No abnormal fluid collection in the pelvis or pelvic lymphadenopathy. BONES: Moderate spondylotic change near the thoracolumbar junction. Disc osteophyte complex at T12-L1 may co ntribute to a moderate focal spinal canal stenosis. No osseous destructive processes. IMPRESSION: 1. REDEMONSTRATED CIRRHOSIS WITH NUMEROUS HYPERVASCULAR HEPATIC MASSES. THESE ARE OVERALL UNCHANGED T O MINIMALLY SMALLER (FOR EXAMPLE, 6.9 CM VERSUS 7.1 CM, PREVIOUSLY). THE 2.3 CM RIGHT LIVER LOBE LESS FILLING HEMANGIOMA IS UNCHANGED. 2. UNCHANGED UPPER ABDOMINAL LYMPHADENOPATHY IN THE ROLANDO HEPATIC/PERIPANCREATIC REGION AND GASTROHEP ATIC REGION. 3. FINDINGS REMAIN CONCERNING FOR A 1.6 CM UROTHELIAL LESION LEFT POSTERIOR BLADDER BASE (ENLARGED FR OM 1.1 CM, PREVIOUSLY). BLADDER CANCER NOT EXCLUDED. APPROPRIATE UROLOGY EVALUATION RECOMMENDED. 4. INCIDENTAL: CAD WITH SEVERE THREE-VESSEL CORONARY ARTERY CALCIFICATIONS REDEMONSTRATED.
== END | disposition home or self-care (01) ==
LOC: RADCTMAIN 11:57
PROVIDERS: ATTEND Internal Medicine Hematology & Oncology
DX: C22.0 Liver cell carcinoma (principal); D18.03 Hemangioma of intra-abdominal structures; R59.0 Localized enlarged lymph nodes; K86.89 Other specified diseases of pancreas; I25.10 Atherosclerotic heart disease of native coronary artery without angina pectoris
CPT/HCPCS: 82565; 84520; 71260; 74177; 36415; Q9967

== ENCOUNTER 2023-01-17 10:22 | Emergency (ER) | payer MEDICARE ==
[2023-01-17 10:57] VITALS: RESP 18; TEMP 98
--- NOTE | 2023-01-17 11:19 | ED ---
General Adult HPI - General Chief complaint: Recheck/Abnormal Lab/Rx Stated complaint: High BP Time Seen by Provider: 01/17/23 11:01 Source: patient, family, RN notes reviewed, old records reviewed Mode of arrival: ambulatory Limitations: no limitations - History of Present Illness Initial comments: 67-year-old male presenting for evaluation of elevated blood pressure. Patient has history of hypertension currently on 100 mg of losartan daily. He states his blood pressure has been trending up over the past week or so. He is currently receiving treatment for liver cancer. No chest pain. Mild dyspnea with history of end-stage COPD - Related Data Home Medications Medication Instructions Recorded Confirmed Albuterol Sulfate [Ventolin HFA] 2 puff INHALATION RT-QID PRN 01/04/22 05/12/22 Budesonide/Formoterol Fumarate 2 puff INHALATION RT-BID 01/04/22 05/12/22 [Symbicort 160-4.5 Mcg Inhaler] Losartan Potassium 50 mg PO DAILY 01/04/22 05/12/22 Chlorthalidone 25 mg PO HS 02/12/22 05/12/22 Dicyclomine [Bentyl] 10 mg PO TID PRN 05/12/22 05/12/22 Ipratropium-Albuterol Nebulize 3 ml INHALATION RT-QID PRN 05/12/22 05/12/22 [Duoneb 0.5 mg-3 mg/3 ml Soln] Previous Rx's Medication Instructions Recorded Levofloxacin [Levaquin] 750 mg PO DAILY 4 Days #4 tab 05/15/22 Ondansetron Odt [Zofran Odt] 4 mg PO Q8HR PRN #20 tab 05/15/22 metroNIDAZOLE [Flagyl] 750 mg PO Q8H #12 tab 05/15/22 oxyCODONE-APAP 10-325MG [Percocet 1 each PO Q6HR PRN #12 tab 05/15/22 10-325 mg] amLODIPine [Norvasc] 5 mg PO DAILY 30 Days #30 tab 01/17/23 Allergies Allergy/AdvReac Type Severity Reaction Status Date / Time No Known Allergies Allergy Verified 01/17/23 10:56 Review of Systems ROS Statement: Those systems with pertinent positive or pertinent negative responses have been documented in the HPI. ROS Other: All systems not noted in ROS Statement are negative. Past Medical History Past Medical History: Chest Pain / Angina, COPD, Hyperlipidemia, Hypertension, Liver Disease, Myocardial Infarction (NC) Additional Past Medical History / Comment(s): "Bloating, lost 30 lbs since Gabriel, nauseated, no appetite". Hx NC X2, 1994 and 2017. Hx "Hepatatis C,. metastatic cancer liver Last Myocardial Infarction Date:: 2017 History of Any Multi-Drug Resistant Organisms: None Reported Past Surgical History: Heart Catheterization With Stent Additional Past Surgical History / Comment(s): 1 cardiac stent. Past Anesthesia/Blood Transfusion Reactions: No Reported Reaction Date of Last Stent Placement:: 2017 Past Psychological History: No Psychological Hx Reported Smoking Status: Light tobacco smoker Past Alcohol Use History: Daily Past Drug Use History: None Reported - Past Family History Father Family Medical History: Myocardial Infarction (NC) Additional Family Medical History / Comment(s): Myocardial infarction Brother(s) Family Medical History: Coronary Artery Disease (CAD) Additional Family Medical History / Comment(s): Multiple brothers with coronary artery disease, one having of an NC. Mother Family Medical History: Cancer General Exam Limitations: no limitations General appearance: alert, in no apparent distress Head exam: Present: atraumatic, normocephalic Eye exam: Present: normal appearance, PERRL ENT exam: Present: normal exam Neck exam: Present: normal inspection. Absent: tenderness Respiratory exam: Present: decreased breath sounds. Absent: respiratory distress Cardiovascular Exam: Present: regular rate, normal rhythm GI/Abdominal exam: Present: soft. Absent: distended, tenderness, guarding Extremities exam: Present: pedal edema Neurological exam: Present: alert, oriented X3, CN II-XII intact. Absent: motor sensory deficit Course Vital Signs 01/17/23 01/17/23 01/17/23 10:50 12:00 12:30 Temperature 98.0 F Pulse Rate 98 84 71 Respiratory 18 18 18 Rate Blood Pressure 192/104 200/117 200/112 O2 Sat by Pulse 93 L 93 L 93 L Oximetry 01/17/23 01/17/23 01/17/23 12:45 13:00 13:15 Temperature Pulse Rate 81 70 70 Respiratory 18 18 18 Rate Blood Pressure 193/107 206/109 207/109 O2 Sat by Pulse 94 L 95 95 Oximetry Medical Decision Making - Medical Decision Making Was pt. sent in by a medical professional or institution ([facility], [facility], urgent care, hospital, or [facility]...) When possible be specific @ -No Did you speak to anyone other than the patient for history (EMS, parent, family, police, friend...)? What history was obtained from this source @ -No Did you review nursing and triage notes (agree or disagree)? Why? @ -I reviewed and agree with nursing and triage notes Were old charts reviewed (outside hosp., previous admission, EMS record, old EKG, old radiological studies, urgent care reports/EKG's, [facility] records)? Report findings @ -No old charts were reviewed Differential Diagnosis (chest pain, altered mental status, abdominal pain women, abdominal pain men, vaginal bleeding, weakness, fever, dyspnea, syncope, headache, dizziness, GI bleed, back pain, seizure, CVA, palpatations, mental health, musculoskeletal)? @ -Differential Weakness: NC, hypertensive urgency, asymptomatic hypertension, stroke, this is not meant to be an all-inclusive list. EKG interpreted by me (3pts min.). @ Sinus rhythm rate of 90, MO interval 148, QRS duration 93, QT seen 390, no ST segment elevation. X-rays interpreted by me (1pt min.). @ Chest x-ray negative for acute findings CT interpreted by me (1pt min.). @ -None done U/S interpreted by me (1pt. min.). @ -None done What testing was considered but not performed or refused? (CT, X-rays, U/S, labs)? Why? @ -None What meds were considered but not given or refused? Why? @ -None Did you discuss the management of the patient with other professionals (professionals i.e. [facility], [facility], lab, RT, psych nurse, social media analyst, optical glass sawyer, teacher, plain clothes police officer, insurance case manager)? Give summary @ -No Was smoking cessation discussed for >3mins.? @ -No Was critical care preformed (if so, how long)? @ -No Were there social determinants of health that impacted care today? How? ( Homelessness, low income, unemployed, alcoholism, drug addiction, transportation, low edu. Level, literacy, decrease access to med. care, alf, rehab)? @ -No Was there de-escalation of care discussed even if they declined (Discuss DNR or withdrawal of care, Hospice)? DNR status @ -No What co-morbidities impacted this encounter? (DM, HTN, Smoking, COPD, CAD, Cancer, CVA, ARF, Chemo, Hep., AIDS, mental health diagnosis, sleep apnea, morbid obesity)? @ -Hypertension, liver cancer Was patient admitted / discharged? Hospital course, mention meds given and route, prescriptions, significant lab abnormalities, going to OR and other pertinent info. @ -67-year-old male with asymptomatic hypertension. Chest x-ray performed which is negative for pulmonary edema or acute findings. He has a normal CBC, CMP showing a mild transaminitis without other acute findings. Patient given Norvasc in the emergency department, Norvasc will be added to his losartan he should follow closely with his primary care physician and monitor blood pressure at home. Patient agreeable with plan. Undiagnosed new problem with uncertain prognosis? @ -No Drug Therapy requiring intensive monitoring for toxicity (Heparin, Nitro, In sulin, Cardizem)? @ -No Were any procedures done? @ -No Diagnosis/symptom? @ -Iasymptomatic hypertension] Acute, or Chronic, or Acute on Chronic? @ -Chronic Uncomplicated (without systemic symptoms) or Complicated (systemic symptoms)? @ -default Side effects of treatment? @ -No Exacerbation, Progression, or Severe Exacerbation? @ -No Poses a threat to life or bodily function? How? (Chest pain, USA, NC, pneumonia, PE, COPD, DKA, ARF, appy, cholecystitis, CVA, Diverticulitis, Homicidal, Suicidal, threat to staff... and all critical care pts) @ -[Yes, long-standing hypertension, hypertensive emergency - Lab Data Result diagrams: 01/17/23 11:26 01/17/23 11:26 Lab Results 01/17/23 01/17/23 01/17/23 Range/Units 11:26 11:26 11:26 WBC 10.4 (3.8-10.6) k/uL RBC 5.27 (4.30-5.90) m/uL Hgb 16.7 (13.0-17.5) gm/dL Hct 49.7 (39.0-53.0) % MCV 94.3 (80.0-100.0) fL MCH 31.8 (25.0-35.0) pg MCHC 33.7 (31.0-37.0) g/dL RDW 13.7 (11.5-15.5) % Plt Count 200 (150-450) k/uL MPV 7.7 Neutrophils % 85 % Lymphocytes % 8 % Monocytes % 6 % Eosinophils % 0 % Basophils % 0 % Neutrophils # 8.8 H (1.3-7.7) k/uL Lymphocytes # 0.8 L (1.0-4.8) k/uL Monocytes # 0.6 (0-1.0) k/uL Eosinophils # 0.0 (0-0.7) k/uL Basophils # 0.0 (0-0.2) k/uL PT 11.0 (9.0-12.0) sec INR 1.0 (<1.2) APTT 22.1 (22.0-30.0) sec Sodium 137 (137-145) mmol/L Potassium 4.5 (3.5-5.1) mmol/L Chloride 102 (98-107) mmol/L Carbon Dioxide 27 (22-30) mmol/L Anion Gap 8 mmol/L BUN 20 (9-20) mg/dL Creatinine 0.72 (0.66-1.25) mg/dL Est GFR (CKD-EPI)AfAm >90 (>60 ml/min/1.73 sqM) Est GFR (CKD-EPI)NonAf >90 (>60 ml/min/1.73 sqM) Glucose 105 H (74-99) mg/dL Calcium 9.4 (8.4-10.2) mg/dL Total Bilirubin 1.3 (0.2-1.3) mg/dL AST 250 H (17-59) U/L ALT 183 H (4-49) U/L Alkaline Phosphatase 182 H (38-126) U/L Total Protein 7.8 (6.3-8.2) g/dL Albumin 3.9 (3.5-5.0) g/dL Disposition Clinical Impression: HCC (hepatocellular carcinoma), Hypertension Disposition: HOME SELF-CARE Condition: Fair Instructions (If sedation given, give patient instructions): Hypertension (ED) Prescriptions: amLODIPine [Norvasc] 5 mg PO DAILY 30 Days #30 tab Is patient prescribed a controlled substance at d/c from ED?: No Referrals: Nedic,Yordy, MD [Primary Care Provider] - 1-2 days Time of Disposition: 13:33
[2023-01-17 11:47] LABS: Basophils % (A) 0 %; Eosinophils % (A) 0 %; HCT 49.7 % (39.0-53.0); HGB 16.7 gm/dL (13.0-17.5); Lymphocytes # (A) 0.8 k/uL (1.0-4.8); Lymphocytes % (A) 8 %; MCH 31.8 pg (25.0-35.0); MCHC 33.7 g/dL (31.0-37.0); MCV 94.3 fL (80.0-100.0); Mean Platelet Volume 7.7; Monocytes # (A) 0.6 k/uL (0-1.0); Monocytes % (A) 6 %; Neutrophils # (A) 8.8 k/uL (1.3-7.7); Neutrophils % (A) 85 %; Platelet Count 200 k/uL (150-450); RBC 5.27 m/uL (4.30-5.90); RDW 13.7 % (11.5-15.5); WBC 10.4 k/uL (3.8-10.6)
--- NOTE | 2023-01-17 11:56 | XR ---
EXAMINATION TYPE: XR chest 2V DATE OF EXAM: 01/17/2023 COMPARISON: 05/12/2022 HISTORY: Shortness of breath TECHNIQUE: Frontal and lateral views of the chest are obtained. FINDINGS: Scattered senescent parenchymal changes noted. Hyperinflation compatible with COPD. No evidence for infiltrate. No evidence for atelectasis. Heart size is stable. Mediastinal structures are stable and grossly unremarkable. No evidence for hilar prominence. Degenerative changes dorsal spine. IMPRESSION: 1. No evidence for acute pulmonary disease.
[2023-01-17 12:00] LABS: ALT 183 U/L (4-49); AST 250 U/L (17-59); African American GFR (CKD) >90 (>60 ml/min/1.73 sqM); Albumin 3.9 g/dL (3.5-5.0); Alkaline Phosphatase 182 U/L (38-126); Anion Gap 8 mmol/L; Blood Urea Nitrogen 20 mg/dL (9-20); Calcium 9.4 mg/dL (8.4-10.2); Carbon Dioxide 27 mmol/L (22-30); Chloride 102 mmol/L (98-107); Glucose 105 mg/dL (74-99); Non-African American GFR(CKD) >90 (>60 ml/min/1.73 sqM); Potassium 4.5 mmol/L (3.5-5.1); Sodium 137 mmol/L (137-145); Total Bilirubin 1.3 mg/dL (0.2-1.3); Total Protein 7.8 g/dL (6.3-8.2)
[2023-01-17 12:14] LABS: Partial Thromboplastin Time 22.1 sec (22.0-30.0)
[2023-01-17] MEDS ORDERED: amLODIPine 5 MG TAB PO STA (12:44)
[2023-01-17 13:54] VITALS: BP 196/111; PULSE 75
== END 2023-01-17 13:54 | disposition home or self-care (01) ==
LOC: EC 10:22
DX: C22.0 Liver cell carcinoma (principal); I10 Essential (primary) hypertension; J44.9 Chronic obstructive pulmonary disease, unspecified; I25.2 Old myocardial infarction; F17.200 Nicotine dependence, unspecified, uncomplicated; Z79.51 Long term (current) use of inhaled steroids; Z79.899 Other long term (current) drug therapy
CPT/HCPCS: 36415; 71046; 80053; 85025; 85610; 85730; 93005; 99284

== ENCOUNTER 2023-02-03 04:22 | Emergency (ER) | payer MEDICARE ==
[2023-02-03] MEDS ORDERED: SODIUM CHLORIDE 0.9% 1,000 ML IV STA (05:01)
[2023-02-03 05:45] LABS: Basophils % (A) 0 %; Eosinophils # (A) 0.2 k/uL (0-0.7); Eosinophils % (A) 2 %; HCT 44.6 % (39.0-53.0); HGB 14.8 gm/dL (13.0-17.5); Lymphocytes % (A) 11 %; MCH 31.7 pg (25.0-35.0); MCHC 33.2 g/dL (31.0-37.0); MCV 95.7 fL (80.0-100.0); Mean Platelet Volume 8.3; Monocytes # (A) 0.9 k/uL (0-1.0); Monocytes % (A) 11 %; Neutrophils # (A) 6.2 k/uL (1.3-7.7); Neutrophils % (A) 72 %; Platelet Count 174 k/uL (150-450); RBC 4.66 m/uL (4.30-5.90); RDW 13.7 % (11.5-15.5); WBC 8.6 k/uL (3.8-10.6)
[2023-02-03 06:20] LABS: ALT 126 U/L (4-49); AST 234 U/L (17-59); African American GFR (CKD) 75 (>60 ml/min/1.73 sqM); Albumin 3.2 g/dL (3.5-5.0); Alkaline Phosphatase 188 U/L (38-126); Amylase 48 U/L (30-110); Anion Gap 5 mmol/L; Blood Urea Nitrogen 22 mg/dL (9-20); Calcium 8.9 mg/dL (8.4-10.2); Carbon Dioxide 26 mmol/L (22-30); Chloride 109 mmol/L (98-107); Glucose 100 mg/dL (74-99); Lipase 50 U/L (23-300); Non-African American GFR(CKD) 65 (>60 ml/min/1.73 sqM); Potassium 4.2 mmol/L (3.5-5.1); Sodium 140 mmol/L (137-145); Total Protein 6.4 g/dL (6.3-8.2)
[2023-02-03 07:30] VITALS: BP 162/90; PULSE 111; RESP 18; TEMP 97.8
--- NOTE | 2023-02-03 07:45 | CT ---
EXAMINATION TYPE: CT abdomen pelvis wo con CT DLP: 482.9 mGycm, Automated exposure control for dose reduction was used. DATE OF EXAM: 02/03/2023 7:28 AM COMPARISON: CT abdomen pelvis most recent from 12/08/2022 . CLINICAL INDICATION:Male, 67 years old with history of L flank pain, stone protocol; Lt flank pain, d iarrhea TECHNIQUE: Renal stone protocol CT of the abdomen and pelvis without IV or oral contrast. Lack of IV or oral contrast limits evaluation of solid and hollow organ viscera. Coronal and sagittal reformats were performed. FINDINGS: LOWER CHEST: Emphysematous changes. ABDOMEN LIVER: Cirrhotic morphology redemonstrated. Known multiple hepatic lesions are better appreciated on prior CT. At least a 2.0 cm hypodense lesion is identified within the right hepatic lobe. GALLBLADDER AND BILE DUCTS: Circumferential wall thickening of the gallbladder likely related to know n cirrhosis. Gallbladder demonstrates a contracted appearance. No biliary ductal dilatation. PANCREAS: Unremarkable noncontrast appearance SPLEEN: Unremarkable noncontrast appearance. ADRENAL GLANDS: Unremarkable noncontrast appearance. KIDNEYS AND URETERS: No evidence of hydronephrosis. Bilateral nonobstructive renal calcifications whi ch are likely vascular. PELVIS BLADDER: Hyperdensity in the posterior aspect urinary bladder near the left uterovesical junction (se al 201, image 116). This is relatively unchanged from prior examination. REPRODUCTIVE: Prostate is enlarged in size measuring 0.9 cm in transverse dimension. ABDOMEN & PELVIS STOMACH AND BOWEL: Stomach and duodenum are unremarkable. There is some wall thickening involving the descending colon and rectum with subtle fat stranding. The appendix is within normal limits. No evid ence of bowel obstruction. PERITONEUM: No evidence of pneumoperitoneum. Trace perihepatic ascites. VASCULATURE: Severe atherosclerotic calcifications are present throughout the abdominal aorta and its branches. No evidence of aortic aneurysm. Perigastric and perisplenic recanalization umbilical vein. Collateral vessels identified. Mesenteric congestion identified. MUSCULOSKELETAL: No acute osseous abnormalities. Mild disc degeneration changes are present throughou t the thoracolumbar spine. Similar disc osteophyte complex at T12-L1 may contribute to a moderate foc al spinal canal stenosis. LYMPH NODES: No gross evidence for lymphadenopathy. SOFT TISSUE/ABDOMINAL WALL: Bilateral fat filled inguinal hernias. Small umbilical hernia containing recanalized umbilical vein and fat. IMPRESSION: 1. Circumferential thickening of the descending colon and rectum suspicious for proctocolitis. 2. Redemonstration of cirrhosis with evidence right hepatic lobe lesion. This is previously character ized as a hemangioma. Known hypervascular hepatic masses are not visualized due to lack of intravenou s contrast. Additionally there is trace perihepatic ascites. 3. Redemonstration of a hypodensity within the posterior left urinary bladder base concerning for uro thelial lesion. Direct visualization is again recommended if not already performed. 4. COPD changes.
[2023-02-03 08:08] LABS: Appearance,Urine Clear (Clear); Bacteria,Urine Rare /hpf; Bilirubin,Urine Negative (Negative); Blood,Urine Moderate (Negative); Color,Urine Yellow; Glucose,Urine (UA) Negative (Negative); Hyaline Casts,Urine 7 /lpf (0-2); Ketones,Urine Negative (Negative); Leukocyte Esterase,Urine Negative (Negative); Mucus,Urine Rare /hpf; Nitrite,Urine Negative (Negative); Protein,Urine Negative (Negative); RBC,Urine 30 /hpf (0-5); Squamous Epithelial Cell,Urine <1 /hpf (0-4); Urobilinogen,Urine <2.0 mg/dL (<2.0); WBC,Urine 4 /hpf (0-5)
[2023-02-03] MEDS ORDERED: LEVOFLOXACIN 750 MG TAB PO STA (08:14)
[2023-02-03] MEDS ORDERED: metroNIDAZOLE-NS PMX 500 MG in SALINE 1 100ML.BAG IVPB STA (08:15)
--- NOTE | 2023-02-03 08:17 | ED ---
Abdominal Pain HPI - General Chief Complaint: Abdominal Pain Stated Complaint: SOB,ABD Pain Time Seen by Provider: 02/03/23 04:58 Source: patient Mode of arrival: ambulatory - History of Present Illness Initial Comments: This patient is 67-year-old man who presents to have evaluation of left-sided abdominal pain that is been getting worse over the past couple of days. The patient relates that he has history of stage IV cancer. 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 The patient describes cramping and aching pain. He also has been having frequent bowel movements going back 1 week. Denies seeing blood or tarry stools. No fever or chills. There is intermittent nausea no vomiting. MD Complaint: abdominal pain Onset/Timin -: days(s) Location: [facility] Radiation: none Migration to: no migration Severity: moderate Quality: cramping, aching Consistency: constant Improves With: nothing Worsens With: nothing Associated Symptoms: nausea, diarrhea - Related Data Home Medications Medication Instructions Recorded Confirmed Albuterol Sulfate [Ventolin HFA] 2 puff INHALATION RT-QID PRN 01/04/22 05/12/22 Budesonide/Formoterol Fumarate 2 puff INHALATION RT-BID 01/04/22 05/12/22 [Symbicort 160-4.5 Mcg Inhaler] Losartan Potassium 50 mg PO DAILY 01/04/22 05/12/22 Chlorthalidone 25 mg PO HS 02/12/22 05/12/22 Dicyclomine [Bentyl] 10 mg PO TID PRN 05/12/22 05/12/22 Ipratropium-Albuterol Nebulize 3 ml INHALATION RT-QID PRN 05/12/22 05/12/22 [Duoneb 0.5 mg-3 mg/3 ml Soln] Previous Rx's Medication Instructions Recorded Levofloxacin [Levaquin] 750 mg PO DAILY 4 Days #4 tab 05/15/22 Ondansetron Odt [Zofran Odt] 4 mg PO Q8HR PRN #20 tab 05/15/22 metroNIDAZOLE [Flagyl] 750 mg PO Q8H #12 tab 05/15/22 oxyCODONE-APAP 10-325MG [Percocet 1 each PO Q6HR PRN #12 tab 05/15/22 10-325 mg] amLODIPine [Norvasc] 5 mg PO DAILY 30 Days #30 tab 01/17/23 Ciprofloxacin HCl [Cipro] 500 mg PO Q12HR #14 tablet 02/03/23 metroNIDAZOLE [Flagyl] 500 mg PO TID #21 tab 02/03/23 Allergies Allergy/AdvReac Type Severity Reaction Status Date / Time No Known Allergies Allergy Verified 02/03/23 04:35 Review of Systems ROS Statement: Those systems with pertinent positive or pertinent negative responses have been documented in the HPI. ROS Other: All systems not noted in ROS Statement are negative. Constitutional: Denies: fever, chills, weakness Respiratory: Denies: cough, dyspnea Cardiovascular: Denies: chest pain, palpitations, edema Gastrointestinal: Reports: abdominal pain, nausea, diarrhea. Denies: vomiting, constipation, hematemesis, melena, hematochezia Genitourinary: Denies: dysuria, hematuria, testicular pain, testicular mass Musculoskeletal: Denies: back pain Skin: Denies: rash Neurological: Denies: headache, weakness Past Medical History Past Medical History: Chest Pain / Angina, COPD, Hyperlipidemia, Hypertension, Liver Disease, Myocardial Infarction (NE) Additional Past Medical History / Comment(s): "Bloating, lost 30 lbs since [place], nauseated, no appetite". Hx NE X2, 1994 and 2017. Hx "Hepatatis C,. metastatic cancer liver Last Myocardial Infarction Date:: 2017 History of Any Multi-Drug Resistant Organisms: None Reported Past Surgical History: Heart Catheterization With Stent Additional Past Surgical History / Comment(s): 1 cardiac stent. Past Anesthesia/Blood Transfusion Reactions: No Reported Reaction Date of Last Stent Placement:: 2017 Past Psychological History: No Psychological Hx Reported Smoking Status: Light tobacco smoker Past Alcohol Use History: Daily Past Drug Use History: None Reported - Past Family History Father Family Medical History: Myocardial Infarction (NE) Additional Family Medical History / Comment(s): Myocardial infarction Brother(s) Family Medical History: Coronary Artery Disease (CAD) Additional Family Medical History / Comment(s): Multiple brothers with coronary artery disease, one having of an NE. Mother Family Medical History: Cancer General Exam General appearance: alert, in no apparent distress Head exam: Present: atraumatic, normocephalic Eye exam: Present: normal appearance. Absent: scleral icterus, conjunctival injection ENT exam: Present: normal oropharynx Neck exam: Present: normal inspection Respiratory exam: Present: normal lung sounds bilaterally. Absent: respiratory distress, wheezes, rales, rhonchi, stridor Cardiovascular Exam: Present: regular rate, normal rhythm, normal heart sounds. Absent: systolic murmur, diastolic murmur, rubs, gallop GI/Abdominal exam: Present: soft, tenderness (Mild left-sided tenderness, no rebound or guarding). Absent: distended, guarding, rebound, rigid, mass, pulsatile mass, hernia Extremities exam: Present: normal inspection, normal capillary refill. Absent: pedal edema, calf tenderness Back exam: Present: normal inspection. Absent: CVA tenderness (R), CVA tenderness (L) Neurological exam: Present: alert Skin exam: Present: warm, dry, intact, normal color. Absent: rash Course Vital Signs 02/03/23 02/03/23 04:25 07:29 Temperature 97.7 F 97.8 F Pulse Rate 119 H 111 H Respiratory 22 18 Rate Blood Pressure 146/87 162/90 O2 Sat by Pulse 93 L 96 Oximetry Medical Decision Making - Medical Decision Making This patient is 67-year-old man with history of stage IV cancer presenting with abdominal pain. The workup does appear to show some proctocolitis. The patient is offered admission but states he has spent enough time in the hospital related to his cancer and would like to go home. He understands there is risk associated. The patient started on course of antibiotics for possibility of in fectious colitis, He will return should he did not experience any improvement or if there is any worsening. The patient had CT of the abdomen and pelvis which I interpreted as showing some colitis present as well as bladder associated mass. No evidence of free air or perforation. Was pt. sent in by a medical professional or institution (, PA, BALLISTICIAN, urgent care, hospital, or usp...) When possible be specific @ -[No] Did you speak to anyone other than the patient for history (EMS, parent, family, police, friend...)? What history was obtained from this source @ -[No] Did you review nursing and triage notes (agree or disagree)? Why? @ -[I reviewed and agree with nursing and triage notes] Were old charts reviewed (outside hosp., previous admission, EMS record, old EKG, old radiological studies, urgent care reports/EKG's, usp records)? Report findings @ -[No old charts were reviewed] Differential Diagnosis (chest pain, altered mental status, abdominal pain women, abdominal pain men, vaginal bleeding, weakness, fever, dyspnea, syncope, headache, dizziness, GI bleed, back pain, seizure, CVA, palpatations, mental health, musculoskeletal)? @ -[Differential Abdominal Pain Women: Appendicitis, Cholecystitis, diverticulosis, ischemic bowel, pancreatitis, hepatitis, UTI, gastroenteritis, AAA, incarcerated hernia, bowel obstruction, constipation, inflammatory bowel, hepatitis, peptic ulcer disease, splenic infarction, perforated viscus, vulvitis, ovarian torsion, PID, kidney stone, placenta abruption, this is not meant to be an all-inclusive list EKG interpreted by me (3pts min.). @ -[As above] X-rays interpreted by me (1pt min.). @ -[None done] CT interpreted by me (1pt min.). @ -[As above U/S interpreted by me (1pt. min.). @ -[None done] What testing was considered but not performed or refused? (CT, X-rays, U/S, labs)? Why? @ -[Stool testing was considered but patient not able to provide specimen here What meds were considered but not given or refused? Why? @ -[None] Did you discuss the management of the patient with other professionals (professionals i.e. , PA, BALLISTICIAN, lab, RT, psych nurse, social welfare administrator, cathode ray tube assembler, teacher, field health officer, correctional case records supervisor)? Give summary @ -[No] Was smoking cessation discussed for >3mins.? @ -[No] Was critical care preformed (if so, how long)? @ -[No] Were there social determinants of health that impacted care today? How? (Homelessness, low income, unemployed, alcoholism, drug addiction, transportation, low edu. Level, literacy, decrease access to med. care, senior care, rehab)? @ -[No] Was there de-escalation of care discussed even if they declined (Discuss DNR or withdrawal of care, Hospice)? DNR status @ -[No] What co-morbidities impacted this encounter? (DM, HTN, Smoking, COPD, CAD, Ca ncer, CVA, ARF, Chemo, Hep., AIDS, mental health diagnosis, sleep apnea, morbid obesity)? @ -[Cancer Was patient admitted / discharged? Hospital course, mention meds given and route, prescriptions, significant lab abnormalities, going to OR and other pertinent info. @ -[The patient is offered admission but would like to try going home. He understands there is risk associated and will return if not improving or if any worsening in condition. The patient received first round of antibiotics here and will continue course of antibiotic medication. Strict return parameters were emphasized. Undiagnosed new problem with uncertain prognosis? @ -[No] Drug Therapy requiring intensive monitoring for toxicity (Heparin, Nitro, Insulin, Cardizem)? @ -[No] Were any procedures done? @ -[No] Diagnosis/symptom? @ -[Acute abdominal pain Probable acute proctocolitis Bladder mass Acute, or Chronic, or Acute on Chronic? @ -[Acute Uncomplicated (without systemic symptoms) or Complicated (systemic symptoms)? @ -[Uncomplicated Side effects of treatment? @ -[No] Exacerbation, Progression, or Severe Exacerbation? @ -[No] Poses a threat to life or bodily function? How? (Chest pain, [place], NE, pneumonia, PE, COPD, DKA, ARF, appy, cholecystitis, CVA, Diverticulitis, Homicidal, Suicidal, threat to staff... and all critical care pts) @ -[Yes, there is certainly life given the suspected bladder cancer. In add ition in cancer patient receiving treatment colitis may worsen to systemic infection/sepsis or - Lab Data Result diagrams: 02/03/23 05:27 02/03/23 05:27 Lab Results 02/03/23 02/03/23 02/03/23 Range/Units 05:27 05:27 05:27 WBC 8.6 (3.8-10.6) k/uL RBC 4.66 (4.30-5.90) m/uL Hgb 14.8 (13.0-17.5) gm/dL Hct 44.6 (39.0-53.0) % MCV 95.7 (80.0-100.0) fL MCH 31.7 (25.0-35.0) pg MCHC 33.2 (31.0-37.0) g/dL RDW 13.7 (11.5-15.5) % Plt Count 174 (150-450) k/uL MPV 8.3 Neutrophils % 72 % Lymphocytes % 11 % Monocytes % 11 % Eosinophils % 2 % Basophils % 0 % Neutrophils # 6.2 (1.3-7.7) k/uL Lymphocytes # 1.0 (1.0-4.8) k/uL Monocytes # 0.9 (0-1.0) k/uL Eosinophils # 0.2 (0-0.7) k/uL Basophils # 0.0 (0-0.2) k/uL Sodium 140 (137-145) mmol/L Potassium 4.2 (3.5-5.1) mmol/L Chloride 109 H (98-107) mmol/L Carbon Dioxide 26 (22-30) mmol/L Anion Gap 5 mmol/L BUN 22 H (9-20) mg/dL Creatinine 1.15 (0.66-1.25) mg/dL Est GFR (CKD-EPI)AfAm 75 (>60 ml/min/1.73 sqM) Est GFR (CKD-EPI)NonAf 65 (>60 ml/min/1.73 sqM) Glucose 100 H (74-99) mg/dL Plasma Lactic Acid Pako 1.1 (0.7-2.0) mmol/L Calcium 8.9 (8.4-10.2) mg/dL Total Bilirubin 1.0 (0.2-1.3) mg/dL AST 234 H (17-59) U/L ALT 126 H (4-49) U/L Alkaline Phosphatase 188 H (38-126) U/L NT-Pro-B Natriuret Pep pg/mL Total Protein 6.4 (6.3-8.2) g/dL Albumin 3.2 L (3.5-5.0) g/dL Amylase 48 (30-110) U/L Lipase 50 (23-300) U/L Urine Color Urine Appearance (Clear) Urine pH (5.0-8.0) Ur Specific [place] (1.001-1.035) Urine Protein (Negative) Urine Glucose (UA) (Negative) Urine Ketones (Negative) Urine Blood (Negative) Urine Nitrite (Negative) Urine Bilirubin (Negative) Urine Urobilinogen (<2.0) mg/dL Ur Leukocyte Esterase (Negative) Urine RBC (0-5) /hpf Urine WBC (0-5) /hpf Ur Squamous Epith Cells (0-4) /hpf Urine Bacteria (None) /hpf Hyaline Casts (0-2) /lpf Urine Mucus (None) /hpf 02/03/23 02/03/23 Range/Units 05:27 05:27 WBC (3.8-10.6) k/uL RBC (4.30-5.90) m/uL Hgb (13.0-17.5) gm/dL Hct (39.0-53.0) % MCV (80.0-100.0) fL MCH (25.0-35.0) pg MCHC (31.0-37.0) g/dL RDW (11.5-15.5) % Plt Count (150-450) k/uL MPV Neutrophils % % Lymphocytes % % Monocytes % % Eosinophils % % Basophils % % Neutrophils # (1.3-7.7) k/uL Lymphocytes # (1.0-4.8) k/uL Monocytes # (0-1.0) k/uL Eosinophils # (0-0.7) k/uL Basophils # (0-0.2) k/uL Sodium (137-145) mmol/L Potassium (3.5-5.1) mmol/L Chloride (98-107) mmol/L Carbon Dioxide (22-30) mmol/L Anion Gap mmol/L BUN (9-20) mg/dL Creatinine (0.66-1.25) mg/dL Est GFR (CKD-EPI)AfAm (>60 ml/min/1.73 sqM) Est GFR (CKD-EPI)NonAf (>60 ml/min/1.73 sqM) Glucose (74-99) mg/dL Plasma Lactic Acid Pako (0.7-2.0) mmol/L Calcium (8.4-10.2) mg/dL Total Bilirubin (0.2-1.3) mg/dL AST (17-59) U/L ALT (4-49) U/L Alkaline Phosphatase (38-126) U/L NT-Pro-B Natriuret Pep 266 pg/mL Total Protein (6.3-8.2) g/dL Albumin (3.5-5.0) g/dL Amylase (30-110) U/L Lipase (23-300) U/L Urine Color Yellow Urine Appearance Clear (Clear) Urine pH 6.0 (5.0-8.0) Ur Specific [place] 1.010 (1.001-1.035) Urine Protein Negative (Negative) Urine Glucose (UA) Negative (Negative) Urine Ketones Negative (Negative) Urine Blood Moderate H (Negative) Urine Nitrite Negative (Negative) Urine Bilirubin Negative (Negative) Urine Urobilinogen <2.0 (<2.0) mg/dL Ur Leukocyte Esterase Negative (Negative) Urine RBC 30 H (0-5) /hpf Urine WBC 4 (0-5) /hpf Ur Squamous Epith Cells <1 (0-4) /hpf Urine Bacteria Rare H (None) /hpf Hyaline Casts 7 H (0-2) /lpf Urine Mucus Rare H (None) /hpf Disposition Clinical Impression: Abdominal pain, Colitis Disposition: HOME SELF-CARE Condition: Fair Instructions (If sedation given, give patient instructions): Abdominal Pain (ED), Colitis (ED) Prescriptions: Ciprofloxacin HCl [Cipro] 500 mg PO Q12HR #14 tablet metroNIDAZOLE [Flagyl] 500 mg PO TID #21 tab Is patient prescribed a controlled substance at d/c from ED?: No Referrals: Yordy Lynn MD [Primary Care Provider] - 1-2 days
== END 2023-02-03 09:22 | disposition home or self-care (01) ==
LOC: EC 04:22
DX: K52.9 Noninfective gastroenteritis and colitis, unspecified (principal); E78.5 Hyperlipidemia, unspecified; I10 Essential (primary) hypertension; I25.2 Old myocardial infarction; F17.200 Nicotine dependence, unspecified, uncomplicated; Z79.51 Long term (current) use of inhaled steroids; Z79.899 Other long term (current) drug therapy
CPT/HCPCS: 36415; 74176; 80053; 81001; 82150; 83605; 83690; 83880; 85025; 96361; 96365; 99284